=== PATIENT | male | born 1955 | race Caucasian/White ===

== ENCOUNTER 2018-03-09 14:56 | Outpatient (REF) | payer BC, SELFPAY ==
[2018-03-09 19:24] LABS: ALT 46 U/L (12-78); AST 35 U/L (15-37); Albumin 4.2 g/dL (3.4-5.0); Alkaline Phosphatase 65 U/L (46-116); Anion Gap 8.1 mmol/L (3-11); BUN 17 mg/dL (7-18); Bilirubin, Total 0.9 mg/dL (0.2-1.0); CO2 28.9 mmol/L (21.0-32.0); CREATININE 1.09 mg/dL (0.70-1.30); Calcium 9.7 mg/dL (8.5-10.1); Chloride 107 mmol/L (98-107); Cholesterol 211 mg/dL (50-200); Glucose 84 mg/dL (70-100); HDL Cholesterol 48 mg/dL (40-60); LDL CHOLESTEROL 133 mg/dL (<100); Potassium 4.4 mmol/L (3.5-5.1); Sodium 144 mmol/L (136-145); Total Protein 7.5 g/dL (6.4-8.2); Triglyceride 145 mg/dL (30-150)
== END 2018-03-09 15:16 ==
LOC: LBN 14:56
PROVIDERS: PCP Internal Medicine; Visit Provider Family Medicine
DX: Z13.220 Encounter for screening for lipoid disorders (principal); Z13.228 Encounter for screening for other metabolic disorders
CPT/HCPCS: 80053; 80061; 83721

== ENCOUNTER 2018-12-07 07:07 | Day surgery (SDC) | payer MEDICARE, BC, SELFPAY ==
--- NOTE | 2018-12-07 06:37 | W.COLOREPORT ---
Date of service: 12/07/18 Time of Service: 08:18 Colonoscopy Report Date of procedure: 12/07/18 Pre-op diagnosis general: Hx of colon polyps Post-op diagnosis procedure note: same Procedure: Colonoscopy with polypectomy by cold forceps Surgeon: Prudence Heard Anesthesia proc note operative: other (General/ ASA 2/Mayda Luke CRNA) Estimated blood loss (mL): 3 Pathology: other (Rectal Polyps x4) Complications: None Indications: Mr. Arce is a pleasant 63 year old male seen in the office for a colonoscopy. His last colonoscopy was in 2013 and he was noted to have an adenomatous polyp in the distal sigmoid colon. He is here for a follow up colonoscopy. Risks, benefits and complications have been reviewed. Complications include but are not limited to bleeding, pain, perforation, missed small lesion/polyp, sore throat, aspiration and adverse reaction to the medications. Questions were entertained and answered to their satisfaction and they wished to proceed. No guarantees were given or implied. Prep: Miralax/Dulcolax Procedure Start Time: :18 Procedure End Time: : Retraction Time: 15 minutes Findings: 4 small sessile polyps in the rectum Mild Diverticulosis Procedure Description: After informed consent was obtained the patient was taken to the procedure room and placed in a left decubitous position. Monitors were applied and a time out was done. The patients name, date of , procedure, allergies to medications and metal in their body was reviewed. The patient was then sedated. Once sedated and comfortable a rectal exam was done. External exam was normal. Internal exam revealed a normal sphincter tone and no palpable masses. The prostate felt normal size. There was a question of a small nodule. The scope was then introduced and retro-flexed. No internal hemorrhoids. masses were identified on retro-flexion. The scope was then advanced to the cecum with some difficulty. There was a very tight corner in the sigmoid colon that was difficult to get around. The TI and appendiceal orifice were identified. The prep was adequate. The scope was then slowly retracted over 15 minutes back into the rectum. Polyps were removed with cold forceps in the rectum. There was mild diverticulosis of the sigmoid colon. The scope was removed and the patient was woken up and taken back to Same day surgery in stable condition. The patient tolerated the procedure well and there were no immediate complications. Follow up: The patient should follow up in 5 years unless they develop changes in bowel habits or other new gastrointestinal complaints. He should follow up with PCP for a possible small nodule on the prostate.
--- NOTE | 2018-12-07 06:39 | W.PM.DSUDISC ---
Discharge Plan Disposition Patient Disposition: HOME Condition: Good Discharge Details Reason For Visit: Colonoscopy Attending Provider: Prudence Heard Primary Care Provider: Joe Arreola Home Meds and New Rx's Prescriptions: Continued tadalafil [Cialis] 10 mg tablet 10 mg PO DAILY PRN (Reason: sexual activity) Qty: 10 RF: 6 MULTIPLE VITAMINS DAILY 1 EACH tablet 1 ea PO DAILY RF: 0 Discontinued bisacodyl [Dulcolax (bisacodyl)] 5 mg tablet,delayed release (DR/EC) 5 mg PO ONCE Qty: 4 RF: 0 polyethylene glycol 3350 17 gram powder in packet 255 g PO DAILY Qty: 15 RF: 0 Discharge Instructions Instructions: Colonoscopy (DC), Diverticulosis (DC) Additional Instructions: Findings: 4 small rectal polyps Mild diverticulosis I felt a small nodule on your prostate which is probably nothing but I want you to have a check up with your PCP Follow up: 5 years Please call if you develop: fevers >101.5 Nausea or Vomiting Abdominal pain that is not transient DAY SURGERY UNIT POST ENDOSCOPY INSTRUCTIONS 1. Because there will be medication in your system for the next 24 hours, you may feel a little sleepy. Your coordination will be affected. Therefore: a. Do not drive or operate dangerous equipment for 24 hours. b. Do not drink alcohol beverages for 24 hours (not even beer). c. Plan to go home and rest for the day. 2. Generally there are no restrictions on your activity after a day or so has gone by, but you may feel a bit fatigued for a few days. 3 After you arrive home you may have a light meal and return to a normal diet as you can tolerate it without feeling sick to your stomach. 4. After surgery, you may feel pain or discomfort. This should be only transient, but if it persists please contact your doctor. 5. If there are any questions regarding the findings of your procedure, please feel free to contact your doctor. 6. If you are unable to contact your doctor with a problem, contact the hospital at [phone]. 7. Continue all your regular medications unless directed otherwise. I understand the above instructions and have no questions. Signature of Patient or Responsible Adult Escort Date/Time Name of Responsible Adult Escort Signature of Nurse Date/Time Referrals: Joe Arreola, [Primary Care Provider] - (? small nodule on prostate) Activity:: Activity as Tolerated Diet:: High Fiber Diet Discharge Orders Discharge Orders: Discharge Order (Routine); Ordered 12/07/18 Ordered By: Prudence Heard DS: Diagnosis Discharge Diagnosis (1) S/P colonoscopy: Status: Acute (2) Diverticulosis: Status: Acute
[2018-12-07 07:15] VITALS: BP 142/81; PULSE 63; RESP 18; TEMP 36.1; O2SAT 96
[2018-12-07] MEDS: Lactated Ringers 1,000 ML 80 ML IV (07:35)
[2018-12-07 08:35] VITALS: BP 126/84; PULSE 49; RESP 17; TEMP 36.2; O2SAT 96
--- NOTE | 2018-12-07 08:38 | BOWEL_PTH ---
PATIENT: Edil Arce LOC: [facility] U#:[id number] AGE/SX: 63/M ROOM: RE12/07/[address]: Prudence Heard MD : [id number] BED: DIS: 12/07/2018 SPEC #: [id number] RECD: 12/07/18 12:45 STATUS: GRETCHEN REQ #: [id number] MICHAEL: 12/07/18 08:[address]: Prudence Heard DEPT: Surgical Specimen RECD BY: Toña Jeter ENTERED: 12/07/18 12:46 SP TYPE: Bowel OTHR DR: Joe Arreola DO Tissues: 1 - BIOPSY BOWEL Procedures: GROSS AND MICRO LEVEL 4 Comments: [id number]
== END 2018-12-07 09:51 | disposition home or self-care (01) ==
LOC: SUR 07:08
PROVIDERS: PCP Family Medicine; Visit Provider Surgery
PROC: 0DJD8ZZ Inspection of Lower Intestinal Tract, Via Natural or Artificial Opening Endoscopic (ICD-10-PCS; CPT 45378; principal; 2018-12-07 08:30)
DX: Z12.11 Encounter for screening for malignant neoplasm of colon (principal); K62.1 Rectal polyp; K57.30 Diverticulosis of large intestine without perforation or abscess without bleeding; Z86.010 Personal history of colon polyps
CPT/HCPCS: 45380; 88305

== ENCOUNTER 2019-01-19 19:09 | Outpatient (REF) | payer MEDICARE, BC, SELFPAY ==
[2019-01-21 10:12] LABS: PSA, Screening 3.6 ng/mL (0.0-4.5)
== END 2019-01-19 19:29 ==
LOC: LBN 19:09
PROVIDERS: PCP Family Medicine; Visit Provider Family Medicine
DX: N40.2 Nodular prostate without lower urinary tract symptoms (principal); Z12.5 Encounter for screening for malignant neoplasm of prostate
CPT/HCPCS: 84153

== ENCOUNTER → 2019-02-16 10:16 | Outpatient (BNVA) | payer MEDICARE, BC, SELFPAY | PROVIDERS: PCP Family Medicine; Referring Provider Family Medicine; Visit Provider Nurse Practitioner Gerontology | DX: N42.89 Other specified disorders of prostate (principal) | CPT/HCPCS: 99203; 99214 ==

== ENCOUNTER 2019-12-18 10:37 | Emergency (ER) | payer MEDICARE, BC, SELFPAY ==
[2019-12-18 10:46] VITALS: BP 131/85; PULSE 65; RESP 15; TEMP 36.6; O2SAT 97
--- NOTE | 2019-12-18 10:58 | ED.GENADUL_ITS ---
Discharge Plan Disposition Patient Disposition: HOME Condition: Good Discharge Details Clinical Impression: Chalazion Primary Care Provider: Joe Arreola ED Provider: Gillian Anand Home Meds and New Rx's Prescriptions: Continued tadalafil [Cialis] 10 mg tablet 10 mg PO DAILY PRN (Reason: sexual activity) Qty: 10 RF: 6 MULTIPLE VITAMINS DAILY 1 EACH tablet 1 ea PO DAILY RF: 0 Discharge Instructions Instructions: Anurag (ED) Additional Instructions: Please apply warm compress to the eye 4-5 times daily x10 minutes. While doing this, please gently massage the upper eyelid. If you develop fever/chills, spreading of the swelling, increased pain, visual change of any/any symptoms to seek care urgently once again. Otherwise, please follow-up with handbag frames inspector this week for reevaluation. Referrals: Joe Arreola DO [Primary Care Provider] - Discharge Data Discharge Date/Time-TO BE ENTERED AT DEPARTURE: 12/18/19 11:20 Medical Decision Making Patient is a pleasant 34-year-old gentleman presenting today with chief complaint of swelling to the right upper eyelid. Ports that began to this department 2 weeks ago. No vision change. No foreign body sensation. Denies any pain on this area. States that he has maybe gone down slightly but otherwise no change in the size or sensation. No fevers or chills. Until last night he had not been doing anything for this. Applied warm compress x1 last night. On exam, patient has a focal area of swelling and erythema consistent with chalazion. Not see any evidence to suggest periorbital cellulitis. No pain with palpation. Patient is nontoxic-appearing. She wears a contact to the contralateral side but not on the right side. Advised warm compresses 4-5 times daily as well as tension/to the eyelid. He does have a local handbag frames inspector, who resides with follow-up with them later in the week after attempting warm compresses. All of his questions and concerns were addressed, he is in agreement with this plan. HPI General Mode of arrival: ambulatory . Date/Time Provider Initiated Documentation: 12/18/19 10:58 . Limitations to Documentation: no limitations . Information obtained by: patient and RN notes reviewed . History of Present Illness 64 year old M presents to the emergency department with the chief complaint of raised, erythematous lesion to right upper eyelid, described as mild (denies any pain), Quality is described as other (irritating), Patient reports no radiation. Patient started experiencing this week(s) (2) and it has been constant (reports mild improvement). No relieving factors improve symptom(s), No exacerbating factors reported . Patient notes no other symptoms.. Patient did receive the following treatments prior to arrival, none Related Data Home Medications Medication Instructions Recorded Confirmed Multiple Vitamins Daily 1 ea PO DAILY 12/02/13 12/18/19 tadalafil 10 mg tablet 10 mg PO DAILY PRN #10 tab 03/09/18 12/18/19 Previous Rx's Medication Instructions Recorded tadalafil 10 mg tablet 10 mg PO DAILY PRN #10 tab 03/09/18 Allergies Allergy/AdvReac Type Severity Reaction Status Date / Time Penicillins Allergy Unknown unknown Verified 12/18/19 10:52 General Stated Complaint: EyeProblem KATHARINA: 4 Review of Systems Constitutional Constitutional: Reports as per HPI, Denies chills, Denies fatigue, Denies fever(s) and Denies headache(s) Eyes Eyes: Reports as per HPI ENT Ears, Nose, Mouth, and Throat: Denies headache(s) Cardiovascular Cardiovascular: Reports as per HPI, Denies chest pain and Denies lightheadedness Respiratory Respiratory: Denies cough Integumentary/Breasts Skin/Breast: Reports as per HPI, Denies rash, Denies skin pain and Denies skin swelling Neurologic Neurologic: Denies headache(s) and Denies radicular pain Endocrine Endocrine: Denies fatigue [facility] Medical History (Updated 12/18/19 @ 11:16 by CHRISTOPHER Givens) Actinic keratoses (08/22/14) L fawn, h/o Labreque, H/o Paresh 02/2012 Diverticulosis Hyperlipidemia (01/15/13) LDL 132; RISK 10% REC LIFESTYLE 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) Other sleep disturbances (12/06/11) no longer using meds 06/2012 Plantar fasciitis of right foot (08/04/13) Rosacea (12/06/11) dr chavez Sciatica (08/31/02) left; recurrent 2009; recurrent 05/2012 (shoveling/raking) susu L, relieved by inversion bench Tubular adenoma of colon (11/14/14) distal sigmoid tub adenoma, rpt 5 yr Surgical History Colonoscopy - IV Sedation (03/09/04) 2014- tubular adenoma Excision, Lesion (03/09/13) R arm excision non-healing ulcer-Squamous cell carcinoma Dr Man History of shoulder surgery L rotator cuff punch biopsy (01/19/15) L shoulder S/P colonoscopy (~12/07/18) Family History Mother Emphysema lung Father Personal history of malignant neoplasm lung Sister Personal history of malignant neoplasm brain cancer Sister No problems noted. Other Tubular adenoma of colon Social History Smoking/Tobacco Use Status: Never Smoking risk assessment performed?: Yes Alcohol Intake: current Alcohol Intake frequency: a few times a week Alcohol type: beer and wine Drug use: Never Substance use type: does not use Household members: spouse Housing: house Number of Children: 1 current occupation: [employer] Current gender identity: male What type of physical activity do you participate in: regular exercise Frequency: 3-4 times per week Seatbelt use: always Drive intox or ride w/intox haulpak driver: No Working smoke detector in home: Yes Fire extinguisher in home: Yes Carbon monox detector in home: Yes Do you feel safe at home: Yes Do you feel safe in your relationship?: Yes Exam Const General: cooperative, healthy appearing, comfortable, no acute distress, well developed and well groomed Nutritional Appearance: average body habitus and well nourished Orientation: alert, awake and oriented x3 HENMT Head: normal to inspection, normocephalic and atraumatic Ears: hearing grossly normal bilaterally and external ears normal General nose exam: external nose normal and nares normal Face and sinus: normal facial exam and face symmetric Mouth: oral mucosae normal, lip normal and moist mucous membranes Eyes Visual Chen: normal visual chen by confrontation Alignment and Position: alignment normal and position normal Periorbital: periorbital findings normal Eyelids: eyelid abnormality right upper eyelid inflamed cyst external lid; no crusting or scaling of lid margins, with no swelling and nontender Conjunctivae: conjunctivae normal Sclera: sclerae normal Cornea: corneas normal Pupils: PERRL and normal by confrontation EOM: EOM intact bilaterally Resp Effort & Inspection: normal respiratory effort, able to speak in complete sentences and no respiratory distress Skin General skin exam: erythema Neuro General: patient alert, patient awake and patient oriented x3 Cranial Nerves: CN's II-XI intact bilaterally Cognition: normal cognition Speech: speech normal Gait: normal gait Psych Appearance: grossly normal and well kempt Mental Status: mental status grossly normal Speech and Movement: speech and movement normal Course Vital Signs Vital signs: Vital Signs Temperature 36.6 C 12/18/19 10:46 Pulse 65 12/18/19 10:46 Respiratory Rate 15 12/18/19 10:46 Blood Pressure 131/85 12/18/19 10:46 Pulse Oximetry 97 12/18/19 10:46 Temperature 36.6 C 12/18/19 10:46 Temperature Source Temporal Artery Scan 12/18/19 10:46 Pulse 65 12/18/19 10:46 Respiratory Rate 15 12/18/19 10:46 Blood Pressure 131/85 12/18/19 10:46 Blood Pressure Position Sitting 12/18/19 10:46 Pulse Oximetry 97 12/18/19 10:46 Oxygen Delivery Method Room Air 12/18/19 10:46 Oxygen Flow Rate 0 12/18/19 10:46 Pain Level 0 12/18/19 10:46
== END 2019-12-18 11:20 | disposition home or self-care (01) ==
PROVIDERS: Emergency Provider Physician Assistant; PCP Family Medicine
DX: H00.11 Chalazion right upper eyelid (principal)
CPT/HCPCS: 99281

== ENCOUNTER 2020-01-14 04:43 | Outpatient (CLI) | payer MEDICARE, BC, SELFPAY ==
[2020-01-16 10:23] LABS: Patient Race White; SARS-CoV-2 RNA Undetected (Undetected); SARS-CoV-2 Specimen Source Nasal
== END 2020-01-14 05:03 ==
PROVIDERS: PCP Family Medicine; Visit Provider Family Medicine
DX: Z11.59 Encounter for screening for other viral diseases (principal); Z20.828 Contact with and (suspected) exposure to other viral communicable diseases
CPT/HCPCS: U0003

== ENCOUNTER → 2020-01-17 14:54 | Outpatient (BNVA) | payer MEDICARE, BC, SELFPAY | PROVIDERS: PCP Family Medicine; Referring Provider Family Medicine; Visit Provider Nurse Practitioner Gerontology | DX: N42.89 Other specified disorders of prostate (principal) | CPT/HCPCS: 99213 ==

== ENCOUNTER 2021-04-10 14:06 | Outpatient (CLI) | payer MEDICARE, BC, SELFPAY ==
--- NOTE | 2021-04-10 11:01 | DI.RAD_ITS ---
Exam(s) XR HIP LT COMPLETE AP PELVIS EXAM: XR HIP LT COMPLETE AP PELVIS CLINICAL HISTORY: 6 months of L hip pain, suspect arthritis, pain lt hip, M25.552, G89.29 TECHNIQUE: COMPARISON: No exams were available for comparison FINDINGS: Two views were obtained. There are mild degenerative changes of both hips. Cartilaginous joint spac es are fairly well preserved and there are mild marginal osteophytes of the acetabula bilaterally. F emoral heads are well maintained. There are mild degenerative changes of both SI joints and there ar e degenerative changes noted in the lower lumbar spine. IMPRESSION: Mild DJD hips, lower lumbar spine, and SI joints. RADIATION DOSE DELIVERED: Total DLP
== END 2021-04-10 14:26 ==
PROVIDERS: PCP Family Medicine; Visit Provider Family Medicine
DX: M25.552 Pain in left hip (principal); G89.29 Other chronic pain; M16.12 Unilateral primary osteoarthritis, left hip; M53.3 Sacrococcygeal disorders, not elsewhere classified
CPT/HCPCS: 73502

== ENCOUNTER → 2021-05-03 10:42 | Outpatient (BNVA) | payer MEDICARE, BC, SELFPAY | PROVIDERS: PCP Family Medicine; Referring Provider Family Medicine; Visit Provider Student in an Organized Health Care Education/Training Program | DX: M25.852 Other specified joint disorders, left hip (principal) | CPT/HCPCS: 99214 ==

== ENCOUNTER → 2021-05-21 01:03 | Outpatient (CLI) | payer MEDICARE, BC, SELFPAY ==
--- NOTE | 2021-05-21 06:30 | DI.MRI_ITS ---
Exam(s) MR LOWER JOINT LT WO EXAM: MR LOWER JOINT LT WO CLINICAL HISTORY: PAIN,?AVN L HIP,FEMORAL ACETABULAR IMPINGEMENT,M25.857 TECHNIQUE: Multiplanar multisequence MRI of the knee was performed. COMPARISON: No exams were available for comparison FINDINGS: MARROW: There is no evidence of stress fracture nor avascular necrosis. No intraosseous edema in the hip and pelvic bones and no incidental osseous lesions. No evidence of asymmetric joint effusion. There is no bony excrescence seen off the anterior femoral neck to suggest CAM-type RISHI and there are no femoral head osteophytes evident. ARTICULATION: There are mild degenerative cartilage changes in the left hip joint. There are no prom inent chondral defects nor degenerative subarticular cysts evident in the acetabulum and femoral head . No asymmetric hypertrophy of the ligamentum teres no abnormal signal at the level of the fovea sae tralis. LABRUM: There is fluid invagination consistent with tear in the anterosuperior labrum. No large para labral cyst Incidentally noted on the coronal STIR sequences suggestion of possible tear also in the opposite-rig ht hip labrum. SOFT TISSUES: No evidence of tendinitis nor trochanteric bursitis. Also no evidence of iliopsoas bur sitis. No evidence of hamstring tendon tear at the level of the ischial tuberosity OTHER: Enlarged prostate gland. IMPRESSION: 1. No evidence of stress fracture, avascular necrosis, nor left hip joint effusion 2. There is a tear in the anterosuperior labrum. This is associated with a tiny adjacent cyst which appears to be in the acetabulum. Probably small developing degenerative subarticular cyst at this le lalit. 3. Mild osteoarthritic degenerative changes in the hips. No osteophytes evident. 4. No prominent femoral neck bony excrescence evident. DATA REPOSITORY:
== END ==
PROVIDERS: PCP Family Medicine; Visit Provider Student in an Organized Health Care Education/Training Program
DX: M25.852 Other specified joint disorders, left hip (principal); M25.552 Pain in left hip; M16.12 Unilateral primary osteoarthritis, left hip; S73.192A Other sprain of left hip, initial encounter; X58.XXXA Exposure to other specified factors, initial encounter
CPT/HCPCS: 73721

== ENCOUNTER 2021-05-29 12:54 | Outpatient (CLI) | payer MEDICARE, BC, SELFPAY ==
--- NOTE | 2021-05-29 12:45 | DI.RAD_ITS ---
Exam(s) XR HIP LT COMPLETE AP PELVIS EXAM: XR HIP LT COMPLETE AP PELVIS CLINICAL HISTORY: preop. TECHNIQUE: 2D digital imaging was performed of the left hip. Two views were obtained. AP pelvis an d lateral left hip views were obtained. COMPARISON: CR XR HIP LT COMPLETE AP PELVIS from 04/10/2021 FINDINGS: BONES: No acute fracture is present. No bony destructive lesion is seen. JOINTS: No dislocation present. Stable mild degenerative changes are seen in the hips bilaterally. SOFT TISSUE: Normal. IMPRESSION: Mild degenerative changes seen in the left hip. DATA REPOSITORY: RADIATION DOSE DELIVERED:
== END 2021-05-29 12:55 | disposition home or self-care (01) ==
LOC: DIORS 12:54
PROVIDERS: PCP Family Medicine; Referring Provider Family Medicine; Visit Provider Physician Assistant Surgical
DX: G89.29 Other chronic pain (principal); M25.552 Pain in left hip; Z01.818 Encounter for other preprocedural examination; M25.852 Other specified joint disorders, left hip
CPT/HCPCS: 73502

== ENCOUNTER 2021-06-04 02:33 | Outpatient (CLI) | payer MEDICARE, BC, SELFPAY ==
[2021-06-04 09:29] LABS: MCH 31.9 pg (27.0-33.0); MCHC 32.9 % (32.0-36.0); MPV 10.9 fL (8.0-11.0); Platelet Count 191 10^3/uL (130-400); RBC 5.39 10^6/uL (4.36-5.78); RDW 11.9 % (11.8-14.1); RDW-SD 42.8 fL; WBC 6.47 10^3/uL (4.4-10.8)
[2021-06-04 09:32] LABS: HCT 52.3 % (40.0-50.0); HGB 17.2 g/dL (13.5-17.5)
[2021-06-04 10:21] LABS: Anion Gap 6.9 mmol/L (3-11); BUN 15 mg/dL (7-18); CO2 30.1 mmol/L (21.0-32.0); CREATININE 1.2 mg/dL (0.70-1.30); Chloride 106 mmol/L (98-107); Glucose 95 mg/dL (74-106); Potassium 4.2 mmol/L (3.5-5.1); Sodium 143 mmol/L (136-145)
[2021-06-04 12:08] LABS: Source Nasal/Nares
[2021-06-04 15:36] LABS: COVID-19 PCR Negative (Negative)
== END 2021-06-04 02:34 | disposition home or self-care (01) ==
PROVIDERS: PCP Family Medicine; Visit Provider Student in an Organized Health Care Education/Training Program
DX: M25.552 Pain in left hip (principal); M16.12 Unilateral primary osteoarthritis, left hip; Z20.822 Contact with and (suspected) exposure to COVID-19; Z01.818 Encounter for other preprocedural examination; Z01.812 Encounter for preprocedural laboratory examination
CPT/HCPCS: 36415; 80048; 85027; 87635; U0005

== ENCOUNTER 2021-06-04 02:49 | Outpatient (CLI) | payer MEDICARE, BC, SELFPAY | END 2021-06-04 02:50 | disposition home or self-care (01) | LOC: LBO 02:49 | PROVIDERS: PCP Family Medicine; Visit Provider Student in an Organized Health Care Education/Training Program ==

== ENCOUNTER 2021-06-06 07:19 | Day surgery (SDC) | payer MEDICARE, BC, SELFPAY ==
[2021-06-06] VITALS (10 sets, daily range): BP systolic 72–139; BP diastolic 47–91; PULSE 47–73; RESP 14–18; TEMP 36.1–36.6; O2SAT 93–99; BMI 27.1
--- NOTE | 2021-06-06 07:24 | W.PM.DSUDISC ---
Discharge Plan Disposition Patient Disposition: HOME Condition: Good Discharge Details Reason For Visit: Left MARIA ALEJANDRA Attending Provider: Willi Jefferson Primary Care Provider: Joe Arreola Home Meds and New Rx's Prescriptions: New celecoxib [Celebrex] 200 mg capsule 200 mg PO BID Qty: 60 0RF aspirin 81 mg tablet,delayed release (DR/EC) 81 mg PO BID Qty: 60 0RF pantoprazole [Protonix] 40 mg tablet,delayed release (DR/EC) 40 mg PO DAILY Qty: 30 0RF acetaminophen 500 mg capsule 1,000 mg PO Q8H PRN PRNQty: 90 0RF oxycodone 5 mg tablet 5 mg PO Q4H PRNQty: 18 0RF Continued lisinopril 10 mg tablet 10 mg PO DAILY Qty: 90 3RF atorvastatin 40 mg tablet 40 mg PO QHS Qty: 90 3RF tadalafil [Cialis] 10 mg tablet 10 mg PO DAILY PRN (Reason: sexual activity) Qty: 10 6RF Rx Instructions: administer approximately 30min before sexual activity; do not use more than 1 dose per 24hrs MULTIPLE VITAMINS DAILY 1 EACH tablet 1 ea PO DAILY 0RF Discharge Instructions Additional Instructions: Total Hip Discharge Instructions Activity: The most important activity is to walk. You should try to take short walks a few times a day. You have no restrictions on movement or positioning, but do not try to force what you do. You will find some stiffness and weakness with hip flexion (lifting your knee). Do not try to strengthen this too early, continue to practice walking and stairs and this will come. - Outpatient physical therapy can be helpful to help return you to a normal gait and improve your flexibility and strength. This can start around 2 weeks. For some patients, it?s not necessary. Usually this is determined at the time of discharge or at the first post-operative visit. - You should wear the TOMY hose on both legs for 2 weeks. Dressing: Keep the surgical dressing in place for at least one week. After the first week it may be removed and replace with light gauze and tape or nothing. It may get wet after 3 days but avoid soaking the dressing. If it gets wet, just lightly pat dry. It is important to always keep some gauze between skin folds, especially when you are sitting. Spend some time with the wound exposed when you are lying flat as the incision does wrinkle onto itself. Medications: - You should take Tylenol and an anti-inflammatory Celebrex as your primary pain control medications. If the Celebrex is too expensive or not covered, please call the office for another alternative (Advil/Ibuprofen or Naproxen/Aleve). - You have been prescribed a stronger pain medication Oxycodone for breakthrough pain, take as needed as prescribed. - You have also been prescribed a stomach acid reduction agent Pantoprozole to help reduce stomach acid and reflux. - You will be taking Aspirin 81mg twice a day for DVT prevention unless instructed otherwise. - If you have constipation you should take Colace or Miralax (both [id number]). It takes most people 3-4 days to have a bowel movement. Follow-up: 2 weeks If you have any acute concerns or questions, please do not hesitate to contact the office at [phone]. You may contact Dr. Jefferson with any questions after hours through the hospital at [phone] or on his cell phone at [phone]. Equipment/Supplies: Walker Activity:: Activity as Tolerated Remove Dressings/Wound Care:: Do Not Remove Shower/Bathe:: 72 hours Diet:: As Tolerated Discharge Orders Discharge Orders: Discharge Order (Routine); Ordered 06/06/21 Ordered By: Mikala Blanc
[2021-06-06] MEDS: Acetaminophen 500 MG TAB 1000 MG PO (07:58)
[2021-06-06] MEDS: Celecoxib 200 MG CAP 400 MG PO (07:58)
[2021-06-06] MEDS: Lactated Ringers 1,000 ML 80 ML IV (08:15)
--- NOTE | 2021-06-06 08:17 | ANES.PREOP_ITS ---
General Info Date of Service Date Performed: 06/06/21 Height: 5 ft 8 in Weight: 81 kg Body Mass Index (BMI): 27.1 Surgical Procedure: Operation Date: 06/06/21 09:50 Proposed Procedure Side Surgeon p Hip Total Hip Anterior Left Willi Jefferson MD Meds Allergies and Home Medications Allergies Allergy/AdvReac Type Severity Reaction Status Date / Time Penicillins Allergy Unknown unknown Verified 06/06/21 07:41 Home Medication Medication Instructions Recorded Multiple Vitamins Daily 1 ea PO DAILY 12/02/13 tadalafil 10 mg tablet (Cialis) 10 mg PO DAILY PRN #10 tab 03/09/18 atorvastatin 40 mg tablet 40 mg PO QHS #90 tab 05/15/21 lisinopril 10 mg tablet 10 mg PO DAILY #90 tab 05/15/21 acetaminophen 500 mg capsule 1,000 mg PO Q8H PRN PRN #90 cap 06/06/21 aspirin 81 mg tablet,delayed 81 mg PO BID #60 tab 06/06/21 release celecoxib 200 mg capsule (Celebrex) 200 mg PO BID #60 cap 06/06/21 oxycodone 5 mg tablet 5 mg PO Q4H PRN #18 tab 06/06/21 pantoprazole 40 mg tablet,delayed 40 mg PO DAILY #30 tab 06/06/21 release (Protonix) Current Visit Medications: Current Medications Generic Name Dose Route Start Last Admin Trade Name Freq PRN Reason Stop Dose Admin Acetaminophen 1,000 mg 06/06/21 06:00 06/06/21 07:58 Acetaminophen 500 Mg Tab PO 1,000 mg PREOP MARTIN Administration Acetaminophen 1,000 mg 06/06/21 14:00 Acetaminophen 500 Mg Tab PO TID MARTIN Aspirin 81 mg 06/06/21 20:00 Aspirin E.C. 81 Mg Tabec PO BID MARTIN Celecoxib 400 mg 06/06/21 06:00 06/06/21 07:58 Celecoxib 200 Mg Cap PO 400 mg PREOP MARTIN Administration Celecoxib 200 mg 06/06/21 20:00 Celecoxib 200 Mg Cap PO BID MARTIN Bupivacaine HCl 25 ml/ 0 ml 06/05/21 11:30 Ketorolac Tromethamine 15 mg/ IJ 06/10/21 11:29 Sodium Chloride 24.5 ml DIRECTED MARTIN Docusate Sodium 100 mg 06/06/21 07:06 Docusate Sodium 100 Mg Cap PO BID PRN PRN Constipation Hydromorphone HCl 0.5 mg 06/06/21 07:06 Hydromorphone 2 Mg/Ml Vial IVP Q2H PRN PRN Tranexamic Acid 1,000 mg/ 60 mls @ 360 mls/hr 06/06/21 06:00 Sodium Chloride IV PREOP MARTIN Ringer's Solution 1,000 mls @ 80 mls/hr 06/06/21 06:00 IV 07/05/21 23:59 INFUSION MARTIN Cefazolin Sodium/Dextrose 2 gm in 50 mls @ 100 mls/hr 06/06/21 06:00 Ancef Duplex IVPB 07/05/21 23:59 PREOP MARTIN Cefazolin Sodium/Dextrose 1 gm in 50 mls @ 100 mls/hr 06/06/21 16:00 Ancef Duplex IVPB 06/07/21 08:29 Q8H MARTIN IV Miscellaneous Supplies 1 each 06/06/21 06:00 Iv Access IV 07/05/21 23:59 DIRECTED MARTIN Ondansetron HCl 4 mg 06/06/21 07:06 Ondansetron 4 Mg/2 Ml Vial IVP Q6H PRN PRN Nausea Oxycodone HCl 0 mg 06/06/21 07:06 Oxycodone 5 Mg Tab PO Q3H PRN PRN Pain Pantoprazole Sodium 40 mg 06/07/21 07:30 Pantoprazole 40 Mg Tabcr PO DAILY@0730 MARTIN Sodium Chloride 0 ml 06/06/21 06:00 Normal Saline Flush 10 Ml Syr IV 07/05/21 23:59 PRN PRN Sodium Chloride 0 ml 06/06/21 06:00 Normal Saline 10 Ml Vial IJ 07/05/21 23:59 DIRECTED PRN Sterile Water 0 ml 06/06/21 06:00 Water,Injection,Sterile 10 Ml Vial IJ 07/05/21 23:59 DIRECTED PRN PFSH Active Problems Active Problems: Problem Status Onset Code Heart murmur R01.1 Essential hypertension I10 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 Chronic left hip pain M25.552, G89.29 Low back pain M54.50 Sciatic leg pain M54.30 Diverticulosis K57.90 S/P colonoscopy ~12/07/18 Z98.890 Actinic keratoses 08/22/14 L57.0 Hyperlipidemia 01/15/13 E78.5 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 Plantar fasciitis of right foot 08/04/13 M72.2 Rosacea 12/06/11 L71.9 Other sleep disturbances 12/06/11 G47.8 Sciatica 08/31/02 M54.30 Medical History Medical History Tubular adenoma of colon (12/31/13) distal sigmoid tub adenoma, rpt 5 yr Surgical History Surgical History Colonoscopy - IV Sedation (03/09/04) 2014- tubular adenoma Excision, Lesion (03/09/13) R arm excision non-healing ulcer-Squamous cell carcinoma Dr Man History of shoulder surgery L rotator cuff punch biopsy (01/19/15) L shoulder Tobacco Smoking/Tobacco Use Status: Never Alcohol Alcohol Intake: current Alcohol intake frequency: a few times a week Alcohol type: beer and wine Substance Use Substance use: Never Substance use type: does not use Vital Signs and Lab Results Vital Signs Most Recent Vital Signs in EMR: Most Recent Vital Signs Temp Pulse Resp BP Pulse Ox 36.6 C 73 18 139/85 95 06/06/21 07:51 06/06/21 07:51 06/06/21 07:51 06/06/21 07:51 06/06/21 07:51 Lab Results Blood Type / Crossmatch: No Data to Display Complete Blood Count: White Blood Count 6.47 10^3/uL (4.4-10.8) 06/04/21 09:15 06/04/21 Red Blood Count 5.39 10^6/uL (4.36-5.78) 06/04/21 09:15 06/04/21 Hemoglobin 17.2 g/dL (13.5-17.5) 06/04/21 09:15 06/04/21 Hematocrit 52.3 % (40.0-50.0) H 06/04/21 09:15 06/04/21 Platelet Count 191 10^3/uL (130-400) 06/04/21 09:15 06/04/21 Complete Metabolic Panel: 2 Sodium Level 143 mmol/L (136-145) 06/04/21 09:15 06/04/21 Potassium Level 4.2 mmol/L (3.5-5.1) 06/04/21 09:15 06/04/21 Chloride Level 106 mmol/L (98-107) 06/04/21 09:15 06/04/21 Carbon Dioxide Level 30.1 mmol/L (21.0-32.0) 06/04/21 09:15 06/04/21 Blood Urea Nitrogen 15 mg/dL (7-18) 06/04/21 09:15 06/04/21 Creatinine 1.2 mg/dL (0.70-1.30) 06/04/21 09:15 06/04/21 Estimated GFR/1.73 m2 >= 60.00 (mL/min/1.73m2) 06/04/21 09:15 06/04/21 Calcium Level 10.0 mg/dL (8.5-10.1) 06/04/21 09:15 06/04/21 Glucose Level 95 mg/dL (74-106) 06/04/21 09:15 06/04/21 Liver Function Panel: No Data to Display Coagulation Panel: No Data to Display Cardiac Panel: No Data to Display Arterial Blood Gas: No Data to Display Venous Blood Gas: No Data to Display Pancreas Panel: No Data to Display Thyroid Panel: No Data to Display Infectious Disease: Coronavirus (COVID-19)(PCR) Negative (Negative) 06/04/21 09:25 06/04/21 Coronavirus 2019 Source Nasal/Nares 06/04/21 09:25 06/04/21 Blood Cultures: No Data to Display Toxicology Panel: No Data to Display Anesthesia Assessment and Plan Anesthesia History Personal History: No History of Anesthesia Complications Family History: No Family History of Anesthesia Complications Exercise Tolerance Exercise Tolerance: Metabolic Equivalents>4 Pertinent Negatives Pertinent Negatives: No Symptoms of GERD, No Major Cardiovascular Symptoms or Complaints and No Major Pulmonary Symptoms or Complaints Cardiac & Pulmonary Exam Cardiac Exam: Normal S1/S2 Heart Sounds Pulmonary Exam: Clear Bilateral Breath Sounds Implantable Cardiac Device Does patient have a Pacemaker or an ICD?: No Airway Exam Known Difficult Airway: No Mallampati Class: 1 Mouth Opening: Normal (> 3cm) Thyromental Distance: Greater than 3 cm Neck Range of Motion: Full ROM Neck Circumference: Normal Teeth Condition: Normal Dentition ASA Classification ASA Score: ASA 2 Emergency Case?: No NPO Status NPO Status: NPO Clears >2 hours, Solids >8 hours Anesthesia Plan Resuscitation Status: Full Code Anesthesia Technique: Spinal Anesthesia Airway Planned: Natural Airway Monitors Used: Standard Monitors
[2021-06-06] MEDS: ceFAZolin 2 GM/50 ML BAG IVPB (09:07)
--- NOTE | 2021-06-06 10:32 | DI.RAD_ITS ---
Exam(s) XR HIP LT IN OR EXAM: XR HIP LT IN OR CLINICAL HISTORY: right total hip TECHNIQUE: 2D and realtime digital imaging was performed. COMPARISON: No exams were available for comparison FINDINGS: C-arm fluoroscopy was utilized by Dr. Jefferson during placement of left hip prosthesis. Hard copy sh ows femoral and acetabular components in good position. IMPRESSION: RADIATION DOSE DELIVERED: sheyla Mendes 4.53 mGy
--- NOTE | 2021-06-06 11:21 | W.ANESPOSTOP ---
Postoperative Evaluation Date, Time and Location Date Performed: 06/06/21 Time Performed: 11:21 Patient Location: PACU Vital Signs Most Recent Imported Vital Signs: Most Recent Vital Signs Temp Pulse Resp BP Pulse Ox 36.1 C L 47 L 16 84/56 L 96 06/06/21 11:10 06/06/21 11:10 06/06/21 11:10 06/06/21 11:10 06/06/21 11:10 Pain Score Most Recent Pain Score: Most Recent Pain Score Pain Level 0 06/06/21 07:51 Assessment Mental Status: Arousable with meaningful communication Airway and Respiratory Function: Patent airway with normal (patient baseline) respiratory exam Cardiovascular Function: Hemodynamically Stable Hydration Status: Adequately Hydrated Nausea & Vomiting: No Nausea or Vomiting Pain: Pain is tolerable per patient Peripheral Nerve Block: Patient did not receive a nerve block
--- NOTE | 2021-06-06 13:12 | IN_ITS ---
Date of service: 06/06/21 Time of Service: 13:12 PT Notes Visit Reasons: Left [facility] Physical Therapy Day Surgery Initial Evaluation Date: 06/07/2021 Referring Doctor: CHRISTOPHER Acosta PT Orders: PT CONSULT: S/P ortho surgery Precautions: WBAT on L LE with AD. Patient Profile/Admitting Diagnosis: Edil is a 65-year-old male patient with L femoral acetabular impingement and status post left anterior total hip arthroplasty on postoperative day 0. PMHX: Medical History? Tubular adenoma of colon (12/31/13) distal sigmoid tub adenoma, rpt 5 yr Surgical History? Colonoscopy - IV Sedation (03/09/04) 2014- tubular adenomaExcision, Lesion (03/09/13) R arm excision non-healing ulcer-Squamous cell carcinoma Dr Man History of shoulder surgery L rotator cuffpunch biopsy (01/19/15) L shoulder Social History/Home Situation: Lives with in a private home with 2 steps to enter without rails, he does however is able to hold onto door frame for support. He has a flight of steps to the bedroom but states that he can stay on the main floor of the house while recovering. 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 Has had 2 mechanical falls in the past 12 months Equipment Owned/DME: None Subjective: Agreeable to PT consult. Amazed at how well he is moving without pain. Objective: General Observation: Supine in bed. Mepilex Ag over surgical incision. TEDS to B legs. Mental Status: Alert and oriented x 4 Pain: 1/10 in the L hip ROM: Right Lower Extremity: Hip flexion WFL. Hip abduction WFL. Knee flexion WFL. Ankle dorsiflexion WFL. Ankle plantarflexion WFL. Left Lower Extremity: Hip flexion lacks the last 25% of active ROM. Hip abduction WFL. Knee flexion WFL. Ankle dorsiflexion WFL. Ankle plantarflexion WFL. Strength: Right Lower Extremity: Hip flexors 5/5. Hip abductors 5/5. Knee flexors 5/5. Knee extensors 5/5. Ankle dorsiflexors 5/5. Ankle plantarflexors 5/5. Left Lower Extremity: Hip flexors 3-/5. Hip abductors 4-/5. Knee flexors 4/5. Knee extensors 4-/5. Ankle dorsiflexors 5/5. Ankle plantarflexors 5/5. Sensation: Intact as to pain and light pressure in B lower extremities Bed Mobility/Transfers: Supine to sit standby assist Sit to stand contact-guard assist Stand to sit standby assist Bed to chair standby assist THERA EX: Ankle DF/PF x5, LAQs x 5, seated hip flexion x 5, quads sets x 5, gluts sets x 5. Gait: Tolerated 150 feet of level surface ambulation using the FWW with step-through gait pattern with stand by assist using FWW. No increase in pain report. No loss of balance. NO shortness of breath. Balance: Static Sitting: Normal Dynamic Sitting: Normal Static Standing: Fair Dynamic Standing: Fair Special Tests: Mobility Limitations Standardized Measure [facility] [place]-PAC 6 clicks Basic Mobility Inpatient Short Form: Raw Score: 2923 CMS Score: 11% deficit Informed Consent/Education: Patient instructed in purpose of PT consult. Education and training on initial set of exercises that can be done at home have been completed with patient with reference to [employer] that is downloadable to his smart phone/computer. ASSESSMENT: Patient requires the use of FWW for all mobility ADL performance to reduce fall risk and maximize independence at home. He will have the support of his as he recovers at home. Patient presents with clinical signs and symptoms consistent with current/admitting diagnoses that have resulted to mobility limitations, gait instability, generalized weakness, and impairment of motor control as demonstrated by the following impairment level findings: 1. Decreased strength to left hip major muscle groups 2. Impaired standing balance 3. Limitation of joint range of motion in left hip flexion Impairments are contributing to the following functional limitations: 1. Inability to safely ambulate without assistive device 2. Increase completion time for mobility ADL performance 3. Increased fall risk Patient is assessed as a 16580 moderate complexity based on the following: History: 65-year-old male with impairment level findings, functional limitations, and past medical history as indicated above Examination: Demonstrable impairment in strength, balance, and mobility level with underlying impairments and functional limitations as documented above Presentation: Evolving Decision Makin moderate complexity Goals: N/A. PT evaluation and 1-2 treatment sessions only for functional mobility tra ining using recommended AD and for HEP instruction. Plan of Care/Treatment Plan: N/A. PT evaluation and 1-2 treatment session only for functional mobility training using recommended AD and for HEP instruction. DISCHARGE RECOMMENDATIONS: [] Home with no services [] [] Home with services [specify] [X] Home with outpatient PT. Home when medically cleared by orthopedic surgeon. Will benefit from outpatient services to facilitate return to independent community ambulation and independent ADL performance without an assistive device. [] SNF for continued rehabilitation [] [] Longterm Care [] [] SNF versus LTC based on ability to participate and progress [] TREATMENT CODE/TIME: 07193 x 20 minutes, 58633 x 13 beginning at 13:12 PM. Thank you for the opportunity to participate in the care of this patient. Naomi Phillips PT, DPT, CLT [facility] [place], [place]
[2021-06-06] MEDS: oxyCODONE 5 MG TAB PO (14:04)
--- NOTE | 2021-06-06 16:10 | W.PM.OP ---
Date of service: 06/06/21 Time of Service: 10:30 Operative Note Operative Note DATE OF PROCEDURE: 06/06/21 PRE-OP DIAGNOSIS: Left Hip Chondromalacia POST-OP DIAGNOSIS: same PROCEDURE: Left Anterior Total Hip Arthroplasty with Intraoperative Navigation SURGEON: Willi Jefferson ASP NET PROGRAMMER: Mikala Blanc ANESTHESIA TYPE: Spinal Refer to Anesthesia Record ESTIMATED BLOOD LOSS: 200 PATHOLOGY: none sent COMPLICATIONS: None Patient was transported to: PACU Patient's condition: stable Implants: 1. Depuy [place] Acetabular Component, 54mm 2. Depuy Acetabular Liner, [id number] 3. Depuy Corail Standard 125 degree Collared Femoral Stem, Size 10 4. Depuy Altrx Ceramic Femoral Head, Size 36+8.5mm Indications: I have seen Chacho in clinic for symptoms of hip arthritis, confirmed with radiographic findings. He was having significant limitations in daily function and desired better function and less pain. I discussed the technical details of a hip replacement. I explained the risks of the procedure to include, but not limited to, bleeding, infection, pain, stiffness, fracture, damage to nerves and vessels, damage to muscles and tendons, loosening, instability, leg length inequality, need for repeat procedure, blood clot and cardiopulmonary demise. Despite these risks, Chacho elected to proceed. Findings: There was significant chondromalacia focally along the superior femoral head. Procedure Description: Chacho was greeted in the preoperative holding area where the correct side was identified and marked. The consent was reviewed with the patient and signed. The history and physical was updated. All questions were answered. He was taken back to the operating room. A spinal anesthestic was then administered. The feet were wrapped with cast padding and Coban and then placed into the boot liners and then into the boots. Care was taken to protect the skin and make sure the heels were fully down and the boots were stable. The patient was then positioned onto the HANA table. Both legs were held in a neutral position. SCDs were applied. The patient was then slid down onto a peroneal post. Prophylactic antibiotics in the form of Cefazolin were administered. 1g of Tranxemic Acid was given intravenously within 30 minutes of incision. The left leg was then prepped with Chloraprep and draped in a standard fashion. A second prep with Chloraprep was performed prior to placement of a shower-curtain type drape with Iodine impregnated skin protection. A timeout to confirm correct identity, side and site, procedure, allergies, anesthesia, and medical concerns was performed. An obliquely oriented incision was made starting lateral to the ASIS and running distal over the Tensor Fascia Dea (TFL) muscle belly toward the fibular head, approximately 10cm. The skin and soft tissue was dissected sharply, through Mary?s fascia, and to the fascia of the TFL. With the fascia and superior border of the IT band identified, the fascia was incised with a new knife just above any perforators from the IT band. The TFL muscle belly was bluntly dissected away from the fascia and moved laterally. The fat between TFL and rectus was identified to ensure the dissection was not within the TFL. Blunt dissection created space between abductors and the capsule and retractor was placed over the lateral femoral neck. The fibers of the rectus femoris tendon were identified and these were freed from the anterior capsule. A second cobra retractor was placed around the medial femoral neck. The TFL was further retracted laterally to show the deep fascia. Careful dissection through this layer identified three main crossing vessels of the lateral femoral circumflex. These were cauterized in multiple locations and then cut without any noticeable bleeding. The TFL was further released bluntly from the deep fascia to expose anterior hip capsule and fat The Arnol orthopaedic retractor was then placed beneath the TFL and against sartorius and medial soft tissues to protect and retract the soft tissues. A T-capsulotomy was then performed starting at the superior lateral acetabulum and moving distally to the intertrochanteric ridge. These capsular flaps were tagged with a No. 1 Ethibond and elevated from within. The capsular flaps were released to the shoulder of the lateral neck and to the lesser trochanter to give excellent visualization of the proximal femur. A neck osteotomy was performed using an oscillating saw based on preoperative templates. This cut started in the shoulder and of the lateral neck and exited medially. The saw was at all times directed medially to avoid injury to the greater trochanter. Gross traction was applied to the leg and the osteotomy opened. The femoral head was removed with a corkscrew, making sure to protect the TFL on its exit. Traction was released after head removal. This was measured on the back table to determine the starting reamer size. There was a stripe of chondromalacia over the superior aspect of the femoral head corresponding to the lateral rim of the acetabulum. Portions of the rectus obscuring visualization were minimally elevated off the superior acetabulum. An anterior retractor was placed over the anterior wall between capsule and labrum and attached to the Gripper retraction system. The femur was rotated to 90 degrees and medial capsule was fully released until the lesser trochanter was palpable and visible; the femur was returned to 30 degrees. A posterior retractor was placed similarly between capsule and labrum. This provided excellent visualization. The contents of the cotyloid fossa were removed with electrocautery and the labrum was removed with a knife. Acetabular reaming began with a 50mm reamer. This first reaming was directed anterior to posterior and medial to get down to the true floor. This was inspected and reamed until the true floor was reached. The anterior retractor was then released and entry and exit was provided by traction on the capsular flaps. I then reamed sequentially up to a 54mm reamer where good fit was obtained. The larger reamers were oriented based on anatomical reference of the anterior and lateral valdivia to ensure proper abduction and anteversion. Positioning and size was confirmed with the fluoroscopy. A 54mm Depuy [place] acetabular component was selected. The deep tissues were irrigated. The acetabular component was then impacted in a position of about 40-45 degrees of abduction and 15-20 degrees of anteversion, using the patient?s anatomy as the ultimate landmark. Fluoroscopy was used to confirm this. There was excellent security professionals of the acetabular component and the inserting handle was removed. The acetabular liner, Depuy [id number] polyethylene liner, was inserted and lined up with the tines of the acetabular component. There was no soft tissue interposition. The liner was then impacted into position and confirmed to be well-seated. A portion of the gonzalo-articular cocktail was then injected around the acetabulum into the capsule and periosteum. This cocktail consisted of 50cc of 0.25% Bupivicaine and 20cc of Exparel and 30mg of Ketorolac. The leg was rotated to 120 degrees. Any remaining medial capsule was released until the lesser trochanter was easily palpable. A retractor was placed medially. The lateral capsule was further released into the shoulder to allow access to the greater trochanter. A Villarreal retractor was placed over the greater trochanter which allowed the trochanter to flip in front of the capsule for excellent exposure. The leg was brought down into maximal extension and 20 degrees of adduction while ensuring there was no impingement on the acetabulum. Any remnant capsule within the trochanter was released. Piriformis and obturator externis were identified and protected. There was excellent access to the proximal femur. The lateral neck remnant was removed with a rongeur. A blunt canal probe was used to identify the canal and trajectory for later broaching. A box osteotome initiated the broach course. A small curved rasp and a curved curette were used to work laterally. Broaching then began with a size 8 [place] broach. This was inserted manually around the trochanter and into the canal before mallet blows. At this point, it was obvious that this broach was being held up distally. Therfore, I opened the flexible reamers and reamed the femoral canal form 8.5 to 10.5mm. This was done without difficulty and then broaching resumed. The broach was seated to a few millimeters below the cut level based on the neck cut and the preoperative template. Sequential broaching was continued with the [employer] pneumatic broaching device until a tight fit was obtained with good rotational control of the femur. A trial low neck was inserted along with a +5 trial head. The leg was brought out of extension and adduction and then reduced with traction and internal rotation. The leg was stable anteriorly in a position of 30 degrees of extension and 90 degrees of external rotation. Fluoroscopy was used to ensure there was no fracture and the stem was seated well. Leg lengths were checked with an AP pelvis and pelvic reference points. Kneebone navigation system was used to confirm appropriate positioning and leg length and offset. To increase offset but not leg length, I went up to the 125 standard neck with a +8.5 head. Once content with the desired offset and leg lengths, the leg was brought back into extension, external rotation and adduction. The periosteum and surrounding tissue was injected with remaining portion of the gonzalo-articular cocktail. The proximal femur was irrigated as well as the deep tissues. The Depuy [place] standard 125 collared stem, size 10, was then manually inserted into the proximal femur making sure to control rotation. It was then malleted into position with light blows, giving breaks to allow bone expansion and decrease risk of fracture. The selected Depuy Altrx Ceramic Head, size 36+8.5mm, was then placed onto the clean and dry trunnion and secured with impaction onto the tapered fit. The leg was brought back out of extension and adduction and reduced with traction and internal rotation. Stability was confirmed with no shuck at 90 degrees of external rotation and 30 degrees of extension. No impingement through range of motion arc. Final x-ray images were obtained with fluoroscopy to confirm adequate positioning and no intraoperative fracture. The deep tissues were thoroughly irrigated with Surgiphor betaine solution. This was allowed to sit for 3 minutes and then it was irrigated with saline. The capsule was then reapproximated with the previously placed Ethibond sutures. The TFL fascia was finally closed with a No. 2 Stratafix, barbed suture. Deep tissues were then reapproximated with 0 Vicryl and a running 2-0 Vicryl. The skin was closed with a running 4-0 Monocryl in a subcuticular fashion. This was reinforced with skin glue. A Mepilex silver dressing was applied. At the end of the case, all counts were correct. Edil was transferred to the hospital bed without difficulty and suffering no apparent complication. Chacho has a good prognosis. Physical therapy will start today and without restrictions, weight-bearing as tolerated. Aspirin 81mg BID will be used for DVT prophylaxis.
== END 2021-06-06 14:45 | disposition home or self-care (01) ==
PROVIDERS: PCP Family Medicine; Visit Provider Student in an Organized Health Care Education/Training Program
PROC: (CPT 27130; principal; 2021-06-06 09:30)
DX: M16.12 Unilateral primary osteoarthritis, left hip (principal); M94.252 Chondromalacia, left hip; I10 Essential (primary) hypertension; E78.5 Hyperlipidemia, unspecified; M54.40 Lumbago with sciatica, unspecified side
CPT/HCPCS: 20985; 27130; C1776; 97162; 97530; 73501; J0690; J1885; J2250; J2370; J2405; J3490

== ENCOUNTER 2021-06-21 12:11 | Outpatient (CLI) | payer MEDICARE, BC, SELFPAY ==
--- NOTE | 2021-06-21 10:00 | DI.RAD_ITS ---
Exam(s) XR HIP LT COMPLETE AP PELVIS EXAM: XR HIP LT COMPLETE AP PELVIS CLINICAL HISTORY: 1ST POST OP L MARIA ALEJANDRA TECHNIQUE: COMPARISON: CR XR HIP LT COMPLETE AP PELVIS from 05/29/2021 FINDINGS: Two views were obtained. There is a total hip joint replacement position on the left. The component s appear well seated. There are mild degenerative changes of the right hip. No other significant [place] abnormality seen. IMPRESSION: RADIATION DOSE DELIVERED: Total DLP
== END 2021-06-21 12:12 | disposition home or self-care (01) ==
LOC: DIORS 12:11
PROVIDERS: PCP Family Medicine; Referring Provider Family Medicine; Visit Provider Student in an Organized Health Care Education/Training Program
DX: Z96.642 Presence of left artificial hip joint (principal)
CPT/HCPCS: 73502

== ENCOUNTER → 2021-07-26 09:18 | Outpatient (BNVA) | payer MEDICARE, BC, SELFPAY | PROVIDERS: PCP Family Medicine; Referring Provider Family Medicine; Visit Provider Student in an Organized Health Care Education/Training Program | DX: Z47.1 Aftercare following joint replacement surgery (principal); Z96.642 Presence of left artificial hip joint ==

== ENCOUNTER 2021-11-01 04:03 | Outpatient (CLI) | payer MEDICARE, BC, SELFPAY ==
[2021-11-01 22:35] LABS: PSA, Screening 6.4 ng/mL (<=4.5)
== END 2021-11-01 04:04 | disposition home or self-care (01) ==
LOC: LBO 04:03
PROVIDERS: PCP Family Medicine; Visit Provider Nurse Practitioner Gerontology
DX: N42.89 Other specified disorders of prostate (principal); Z12.5 Encounter for screening for malignant neoplasm of prostate
CPT/HCPCS: 36415; 84153

== ENCOUNTER → 2021-11-06 08:49 | Outpatient (BNVA) | payer MEDICARE, BC, SELFPAY | PROVIDERS: PCP Family Medicine; Referring Provider Family Medicine; Visit Provider Nurse Practitioner Gerontology | DX: N40.2 Nodular prostate without lower urinary tract symptoms (principal); R97.20 Elevated prostate specific antigen [PSA] | CPT/HCPCS: 99214 ==

== ENCOUNTER → 2021-12-10 07:54 | Outpatient (BNVA) | payer MEDICARE, BC, SELFPAY | PROVIDERS: PCP Family Medicine; Referring Provider Family Medicine; Visit Provider Nurse Practitioner Gerontology | DX: R39.15 Urgency of urination (principal); M54.50 Low back pain, unspecified; N40.2 Nodular prostate without lower urinary tract symptoms; R97.20 Elevated prostate specific antigen [PSA] | CPT/HCPCS: 99214 ==

== ENCOUNTER → 2021-12-17 01:50 | Outpatient (CLI) | payer MEDICARE, BC, SELFPAY ==
--- NOTE | 2021-12-17 06:45 | DI.US_ITS ---
Exam(s) US PROSTATE BIOPSY EXAM: US PROSTATE BIOPSY CLINICAL HISTORY: PI-RADs 5, nodular area,prostate nodule,n40.2 TECHNIQUE: Transrectal ultrasound performed for guidance with performing prostate biopsy. COMPARISON: No exams were available for comparison FINDINGS: Prostate volume 49 mL.. Please see procedure note for details. DATA REPOSITORY:
--- NOTE | 2021-12-17 10:30 | PROST_PTH ---
PATIENT: Edil Arce LOC: [facility] U#:[id number] AGE/SX: 69/M ROOM: RE12/17/[address]: Denisha Brooke DNP : 1955 BED: DIS: SPEC #: [id number] RECD: 12/17/21 12:49 STATUS: GRETCHEN CHANDRA #: [id number] MICHAEL: 12/17/21 10:[address]: Denisha Brooke DEPT: Surgical Specimen RECD BY: Toña Jeter ENTERED: 12/17/21 12:52 SP TYPE: PROST OTHR DR: Joe Arreola DO Tissues: 1 - PROSTATE NEEDLE BIOPSY 2 - PROSTATE NEEDLE BIOPSY 3 - PROSTATE NEEDLE BIOPSY 4 - PROSTATE NEEDLE BIOPSY 5 - PROSTATE NEEDLE BIOPSY 6 - PROSTATE NEEDLE BIOPSY 7 - PROSTATE NEEDLE BIOPSY 8 - PROSTATE NEEDLE BIOPSY 9 - PROSTATE NEEDLE BIOPSY 10 - PROSTATE NEEDLE BIOPSY 11 - PROSTATE NEEDLE BIOPSY 12 - PROSTATE NEEDLE BIOPSY Procedures: GROSS AND MICRO LEVEL 4 IMMUNOPEROXIDASE STAIN Comments: [id number]
--- NOTE | 2021-12-17 10:50 | ROE_ITS ---
Date of service: 12/17/21 Time of Service: 10:50 Operative Note Operative Note DATE OF PROCEDURE: 12/17/21 PRE-OP DIAGNOSIS: Elevated PSA POST-OP DIAGNOSIS: same PROCEDURE: Transrectal ultrasound-guided biopsy of the prostate SURGEON: Jak Berkowitz ANESTHESIA TYPE: Local By Surgeon Refer to Anesthesia Record ESTIMATED BLOOD LOSS: 5 PATHOLOGY: other (12 laterally directed biopsies of prostate) COMPLICATIONS: None Patient was transported to: no change Patient's condition: stable Implants: none Indications: This is a 66-year-old gentleman who has an elevated PSA of 6.5 ng/mL. There is some firmness on the right side of his prostate on digital rectal exam. On multiparameter prostate MRI, there is an abnormality in the right transition zone that is suspicious for a clinically significant prostate cancer. He presents for ultrasound-guided biopsy of the prostate Findings: Prostate volume 41 cc Procedure Description: The patient was given a mechanical and antibiotic bowel prep. He was brought to the radiology suite on 12/17/2021 He was placed in the left lateral position. Transrectal imaging of the prostate was then performed using a variable megahertz transducer. The prostate was angy ged in transverse and longitudinal planes. The prostatic volume was calculated at 41 cc. A periprostatic nerve block was then performed using 1% lidocaine. The peripheral zone appeared normal. On the right apex, there was a hypoechoic nodule in the right transition zone. No additional abnormalities were found. Laterally directed biopsies were taken from the prostate. Each of the biopsies was labeled and sent to pathology for permanent section. The apical biopsies were taken through the hypoechoic lesion. He tolerated this procedure well with no complications.
== END ==
PROVIDERS: PCP Family Medicine; Visit Provider Nurse Practitioner Gerontology
DX: C61 Malignant neoplasm of prostate (principal)
CPT/HCPCS: 55700; 76942; 88305; 88361

== ENCOUNTER → 2022-01-01 14:45 | Outpatient (BNVA) | payer MEDICARE, BC, SELFPAY | PROVIDERS: PCP Family Medicine; Referring Provider Family Medicine; Visit Provider Urology | DX: C61 Malignant neoplasm of prostate (principal) | CPT/HCPCS: 99215 ==

== ENCOUNTER 2022-06-20 10:33 | Outpatient (CLI) | payer MEDICARE, BC, SELFPAY ==
--- NOTE | 2022-06-20 09:30 | DI.RAD_ITS ---
Exam(s) XR HIP LT AP LAT ONLY EXAM: XR HIP LT AP LAT ONLY CLINICAL HISTORY: ANNUAL F/U L MARIA ALEJANDRA. TECHNIQUE: 2D digital imaging was performed. Three images were obtained. AP and lateral views were obtained. COMPARISON: CR XR HIP LT COMPLETE AP PELVIS from 06/21/2021 FINDINGS: BONES: There are stable post operative changes present. No fracture or dislocation. JOINTS: The orthopedic hardware is in good position. No evidence of hardware loosening. SOFT TISSUE: Normal. IMPRESSION: Stable postoperative changes. DATA REPOSITORY: RADIATION DOSE DELIVERED:
== END 2022-06-20 10:34 | disposition home or self-care (01) ==
LOC: DIORS 10:33
PROVIDERS: PCP Family Medicine; Referring Provider Family Medicine; Visit Provider Student in an Organized Health Care Education/Training Program
DX: Z96.642 Presence of left artificial hip joint (principal); Z47.1 Aftercare following joint replacement surgery
CPT/HCPCS: 99213; 73502

== ENCOUNTER 2022-09-20 01:49 | Outpatient (CLI) | payer MEDICARE, BC, SELFPAY ==
[2022-09-21 15:45] LABS: PSA, Ultrasensitive 0.58 ng/mL (<= 4.5)
== END 2022-09-20 01:50 | disposition home or self-care (01) ==
LOC: LBO 01:50
PROVIDERS: PCP Family Medicine; Visit Provider Radiology Radiation Oncology
DX: C61 Malignant neoplasm of prostate (principal)
CPT/HCPCS: 36415; 84153

== ENCOUNTER 2023-04-02 11:01 | Outpatient (CLI) | payer MEDICARE, BC, SELFPAY ==
[2023-04-03 19:39] LABS: PSA, Ultrasensitive 0.14 ng/mL (<= 4.5)
== END 2023-04-02 11:02 | disposition home or self-care (01) ==
LOC: LBO 11:01
PROVIDERS: PCP Family Medicine; Visit Provider Nurse Practitioner Family
DX: C61 Malignant neoplasm of prostate (principal)
CPT/HCPCS: 36415; 84153

== ENCOUNTER → 2023-05-01 11:21 | Outpatient (BNVA) | payer MEDICARE, BC, SELFPAY | PROVIDERS: PCP Family Medicine; Referring Provider Family Medicine; Visit Provider Physical Therapy Assistant | DX: Z12.11 Encounter for screening for malignant neoplasm of colon (principal); Z86.010 Personal history of colon polyps ==

== ENCOUNTER 2023-05-12 07:02 | Day surgery (SDC) | payer MEDICARE, BC, SELFPAY ==
--- NOTE | 2023-05-11 11:33 | W.PM.DSUDISC ---
Date of service: 05/12/23 Time of Service: 08:51 Discharge Plan Disposition Patient Disposition: Home Condition: Good Discharge Details Reason For Visit: screening colonoscopy Attending Provider: Daniel Valerio Primary Care Provider: Joe Arreola Home Meds and New Rx's Prescriptions: Continued tadalafil [Cialis] 10 mg tablet 10 mg PO DAILY PRN (Reason: sexual activity) Qty: 10 6RF Rx Instructions: administer approximately 30min before sexual activity; do not use more than 1 dose per 24hrs atorvastatin 40 mg tablet 40 mg PO QHS Qty: 90 3RF losartan 25 mg tablet 25 mg PO DAILY Qty: 90 3RF Discontinued bisacodyl [Dulcolax (bisacodyl)] 5 mg tablet,delayed release (DR/EC) 5 mg PO ONCE Qty: 4 0RF Rx Instructions: Take per colonoscopy instructions provided by ordering providers office polyethylene glycol 3350 17 gram/dose powder 17 g PO ONCE Qty: 238 0RF Rx Instructions: Take per colonoscopy instructions provided by ordering providers office Discharge Instructions Instructions: Colorectal Polyps (GEN) Additional Instructions: Edil, we were able to complete your colonoscopy today without much difficulty. You did have 2 polyps, which I removed completely. Once I have the results of the polyp report, I will be in touch with recommendations for the timing of your next colonoscopy. If you have any questions in the meantime, please do not hesitate to call or ask at any point. 1. If tolerated, consume a soft, low fiber diet for 1-2 days. 2[address] Do not drive, drink alcohol, operate machinery, make critical decisions, or do activities that require coordination or balance for 24 hours. 3. Because air was put into your colon during the procedure, expelling air from your rectum (passing gas or farting) is normal. 4. You may not have a bowel movement for 1-3 days because of the colonoscopy prep. This is normal. 5. Go directly to the emergency room if you notice any of the following: Develop chills (warm to touch), or if you have a thermometer and your temperature is above 101 Difficulty breathing or difficultly swallowing Persistent vomiting Severe abdominal pain, other than gas cramps Severe chest pain Black, tarry stools Any bleeding ? exceeding one tablespoon 6. Call your physician if the site where your intravenous was started becomes red, swollen, painful, and warm to touch. 7. Your physician has reviewed your pre-procedure medications. Please continue to take those medications as previously ordered. You will be given specific information/education regarding any changes to your medications before leaving. Activity:: Activity as Tolerated Diet:: As Tolerated Discharge Orders Discharge Orders: Discharge Order (Routine); Ordered 05/11/23 Ordered By: Daniel Valerio DS: Diagnosis Discharge Diagnosis (1) Encounter for screening colonoscopy: Status: Acute Asessment and Plan: Follow-up on polypectomy results
--- NOTE | 2023-05-11 11:35 | COLE_ITS ---
Date of service: 05/12/23 Time of Service: 08:57 Colonoscopy Report Date of procedure: 05/12/23 Pre-op diagnosis general: screening colonoscopy Post-op diagnosis procedure note: other (Colon polyps) Procedure: colonoscopy Surgeon: Daniel Valerio Anesthesia Type: General:No Airway Estimated blood loss (mL): 10 Pathology: other (0.5 cm polyp at 20 cm, 0.25 cm polyp at 55 cm) Complications: None Disposition: same day Indications: Edil is a 67 year old man who needs his next screening colonoscopy Prep: Miralax/Dulcolax Procedure Start Time: 08:14 Procedure End Time: 08:42 Retraction Time: 10 Findings: 0.5 cm polyp at 20 cm, 0.25 cm polyp at 55 cm Procedure Description: After the induction of monitored anesthetic care, and with the patient in left lateral decubitus position, I began by performing an external anorectal exam.? Perineum and skin were normal, as was the anal verge.? There was no evidence of external hemorrhoids.? Next, I performed a digital rectal exam.? I did not appreciate any abnormal findings.? Next, I advanced a colonoscope into the rectal vault.? I performed retroflexion.? This appeared normal.? Using insufflation, I then advanced the colonoscope beyond the rectal folds and into the sigmoid colon before advancing towards the cecum.? Around 20 cm from the anal verge was a 0.5 cm polyp. Although it was mostly flat, the edge was lifted slightly. This was removed with cold snare polypectomy without any issue. There was minimal bleeding. We continued advancing.? The scope was noted to be in the cecum by identification of the ileocecal valve and appendiceal orifice.? I then began withdrawing the colonoscope using repeated irrigation as necessary for full evaluation of the colonic mucosa. Around 55 cm from the anal verge was another polyp. This was approximately 0.25 cm. Narrowband imaging was used to assist with analysis. ?This polyp was removed with cold forceps polypectomy without any issue. Once the scope was withdrawn to the level of the rectum, great care was taken to examine portions of the rectal folds.? Finally, the scope was withdrawn and the patient was brought to the same-day surgery recovery unit as the anesthetic wore off. ?The findings and instructions were shared with the patient prior to discharge. [place] Bowel Prep [place] Bowel Prep Right Colon: 3 Left Colon: 3 Transverse Colon: 3 Total Score: 9
[2023-05-12 07:10] VITALS: BP 117/94; PULSE 73; RESP 18; TEMP 36.4; O2SAT 96
[2023-05-12] MEDS: Lactated Ringers 1,000 ML 80 ML IV (07:27)
--- NOTE | 2023-05-12 07:45 | W.ANESPRE ---
General Info Date of Service Date Performed: 05/12/23 Height: 5 ft 7 in Weight: 81.2 kg Body Mass Index (BMI): 28.0 Surgical Procedure: Operation Date: 05/12/23 08:20 Proposed Procedure Side Surgeon lucila Valerio MD Meds Allergies and Home Medications Allergies Allergy/AdvReac Type Severity Reaction Status Date / Time Penicillins Allergy Unknown unknown Verified 05/12/23 07:14 lisinopril AdvReac Mild cough Verified 05/12/23 07:14 Home Medication Medication Instructions Recorded tadalafil 10 mg tablet (Cialis) 10 mg PO DAILY PRN sexual activity 03/09/18 #10 tabs atorvastatin 40 mg tablet 40 mg PO QHS #90 tabs 02/14/23 losartan 25 mg tablet 25 mg PO DAILY #90 tabs 04/24/23 Current Visit Medications: Current Medications Generic Name Dose Route Start Last Admin Trade Name Freq PRN Reason Stop Dose Admin Hyoscyamine Sulfate 0.125 mg 05/11/23 11:36 Hyoscyamine 0.125 Mg Sl/Oral/Chew SL 06/10/23 11:35 DIRECTED PRN Ringer's Solution 1,000 mls @ 80 mls/hr 05/12/23 06:00 05/12/23 07:27 IV 06/08/23 23:59 80 mls/hr INFUSION MARTIN Administration IV Miscellaneous Supplies 1 each 05/12/23 06:00 Iv Access IV 06/08/23 23:59 DIRECTED MARTIN Ondansetron HCl 4 mg 05/11/23 11:36 Ondansetron 4 Mg/2 Ml Vial IVP 06/10/23 11:35 Q4H PRN PRN Nausea / Vomiting Sodium Chloride 0 ml 05/12/23 06:00 Normal Saline Flush 10 Ml Syr IV 06/08/23 23:59 PRN PRN Sodium Chloride 0 ml 05/12/23 06:00 Normal Saline 10 Ml Vial IJ 06/08/23 23:59 DIRECTED PRN Sterile Water 0 ml 05/12/23 06:00 Water,Injection,Sterile 10 Ml Vial IJ 06/08/23 23:59 DIRECTED PRN PFSH Active Problems Active Problems: Problem Status Onset Code Encounter for screening colonoscopy Z12.11 Dry eye syndrome 04/10/22 H04.129 History of squamous cell carcinoma Z85.89 Hamstring muscle strain S76.319A Prostate cancer C61 Heart murmur R01.1 Essential hypertension I10 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 Chronic left hip pain M25.552, G89.29 Low back pain M54.50 Sciatic leg pain M54.30 Diverticulosis K57.90 S/P colonoscopy ~12/07/18 Z98.890 Actinic keratoses 08/22/14 L57.0 Hyperlipidemia 01/15/13 E78.5 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 Plantar fasciitis of right foot 08/04/13 M72.2 Rosacea 12/06/11 L71.9 Other sleep disturbances 12/06/11 G47.8 Sciatica 08/31/02 M54.30 Medical History Medical History History of external beam radiation therapy Elevated PSA Tubular adenoma of colon (12/31/13) distal sigmoid tub adenoma, rpt 5 yr Surgical History Surgical History History of left hip replacement (06/06/21) History of shoulder surgery (06/06/21) L rotator cuff punch biopsy (01/19/15) L shoulder Excision, Lesion (03/09/13) R arm excision non-healing ulcer-Squamous cell carcinoma Dr Man Colonoscopy - IV Sedation (03/09/04) 2014- tubular adenoma Tobacco Smoking/Tobacco Use Status: Never Passive smoking exposure: Yes (In childhood) Alcohol Alcohol Intake: current Alcohol intake frequency: a few times a week Alcohol type: beer and wine Substance Use Substance use: Never Substance use type: does not use Vital Signs and Lab Results Vital Signs Most Recent Vital Signs in EMR: Most Recent Vital Signs Temp Pulse Resp BP Pulse Ox 36.4 C L 73 18 117/94 H 96 05/12/23 07:10 05/12/23 07:10 05/12/23 07:10 05/12/23 07:10 05/12/23 07:10 Lab Results Blood Type / Crossmatch: No Data to Display Complete Blood Count: No Data to Display Complete Metabolic Panel: No Data to Display Liver Function Panel: No Data to Display Coagulation Panel: No Data to Display Cardiac Panel: No Data to Display Arterial Blood Gas: No Data to Display Venous Blood Gas: No Data to Display Pancreas Panel: No Data to Display Thyroid Panel: No Data to Display Infectious Disease: No Data to Display Blood Cultures: No Data to Display Toxicology Panel: No Data to Display Anesthesia Assessment and Plan Anesthesia History Personal History: No History of Anesthesia Complications Family History: No Family History of Anesthesia Complications Exercise Tolerance Exercise Tolerance: Metabolic Equivalents>4 Pertinent Negatives Pertinent Negatives: No Symptoms of GERD Cardiac & Pulmonary Exam Cardiac Exam: Normal S1/S2 Heart Sounds Pulmonary Exam: Clear Bilateral Breath Sounds Implantable Cardiac Device Does patient have a Pacemaker or an ICD?: No Airway Exam Known Difficult Airway: No Mallampati Class: 1 Mouth Opening: Normal (> 3cm) Thyromental Distance: Greater than 3 cm Neck Range of Motion: Full ROM Neck Circumference: Normal Teeth Condition: Normal Dentition ASA Classification ASA Score: ASA 2 Emergency Case?: No NPO Status NPO Status: NPO Clears >2 hours, Solids >8 hours Anesthesia Plan Resuscitation Status: Full Code Anesthesia Technique: General Anesthesia Airway Planned: Natural Airway Monitors Used: Standard Monitors
[2023-05-12 07:48] VITALS: BMI 28.0
--- NOTE | 2023-05-12 08:18 | BOWEL_PTH ---
PATIENT: Edil Arce LOC: [facility] U#:[id number] AGE/SX: 67/M ROOM: RE05/12/[address]: Daniel Valerio MD : [id number] BED: DIS: 05/12/2023 SPEC #: [id number] RECD: 05/12/23 12:03 STATUS: GRETCHEN RE #: [id number] MICHAEL: 05/12/23 08:[address]: Daniel Valerio DEPT: Surgical Specimen RECD BY: Toña Jeter ENTERED: 05/12/23 12:05 SP TYPE: Bowel OTHR DR: Joe Arreola DO Tissues: 1 - BIOPSY BOWEL 2 - BIOPSY BOWEL Procedures: GROSS AND MICRO LEVEL 4 Comments: [id number]
[2023-05-12 08:52] VITALS: BP 109/83; PULSE 71; RESP 16; TEMP 36.3; O2SAT 91
--- NOTE | 2023-05-12 09:07 | W.ANESPOSTOP ---
Postoperative Evaluation Date, Time and Location Date Performed: 05/12/23 Time Performed: 09:07 Patient Location: Day Surgery Unit Vital Signs Most Recent Imported Vital Signs: Most Recent Vital Signs Temp Pulse Resp BP Pulse Ox 36.3 C L 71 16 109/83 91 L 05/12/23 08:52 05/12/23 08:52 05/12/23 08:52 05/12/23 08:52 05/12/23 08:52 Assessment Mental Status: Arousable with meaningful communication Airway and Respiratory Function: Patent airway with normal (patient baseline) respiratory exam Cardiovascular Function: Hemodynamically Stable Hydration Status: Adequately Hydrated Nausea & Vomiting: No Nausea or Vomiting Pain: Pt. Denies Any Pain Peripheral Nerve Block: Patient did not receive a nerve block
[2023-05-12 09:25] VITALS: BP 132/90; PULSE 57; RESP 16; TEMP 36.5; O2SAT 95
== END 2023-05-12 09:42 | disposition home or self-care (01) ==
LOC: SUR 07:02
PROVIDERS: PCP Family Medicine; Visit Provider Surgery
PROC: 0DJD8ZZ Inspection of Lower Intestinal Tract, Via Natural or Artificial Opening Endoscopic (ICD-10-PCS; CPT 45378; principal; 2023-05-12 08:15)
DX: Z12.11 Encounter for screening for malignant neoplasm of colon (principal); D12.5 Benign neoplasm of sigmoid colon
CPT/HCPCS: 45385; 45380; 88305; J2704

== ENCOUNTER → 2023-05-26 07:54 | Outpatient (BNVA) | payer MEDICARE, BC, SELFPAY | PROVIDERS: PCP Family Medicine; Referring Provider Family Medicine; Visit Provider Student in an Organized Health Care Education/Training Program | DX: R29.898 Other symptoms and signs involving the musculoskeletal system (principal) | CPT/HCPCS: 99213 ==

== ENCOUNTER 2023-08-18 09:10 | Outpatient (CLI) | payer MEDICARE, BC, SELFPAY ==
--- NOTE | 2023-08-18 08:30 | DI.RAD_ITS ---
Exam(s) XR HIP PELVIS ADULT BL EXAM: XR HIP PELVIS ADULT BL CLINICAL HISTORY: RIGHT HIP PAIN. TECHNIQUE: 2D digital imaging was performed of the pelvis and bilateral hips. Three images were obt ained. AP pelvis and lateral views of both hips were obtained. COMPARISON: CR XR HIP LT AP LAT ONLY from 06/20/2022 FINDINGS: BONES: No acute fracture is present. No bony destructive lesion is seen. JOINTS: No dislocation present. There are stable findings of a left total hip replacement. No lucenc ies are seen in or about the orthopedic hardware to suggest loosening. The right hip is well maintai lady. SOFT TISSUE: There are surgical clips seen inferior to the pelvis which may reflect prior vasectomy. IMPRESSION: 1. Unremarkable right hip. 2. Stable left total hip replacement. DATA REPOSITORY: RADIATION DOSE DELIVERED:
== END 2023-08-18 09:11 | disposition home or self-care (01) ==
LOC: DIORS 09:10
PROVIDERS: PCP Family Medicine; Referring Provider Family Medicine; Visit Provider Student in an Organized Health Care Education/Training Program
DX: R29.898 Other symptoms and signs involving the musculoskeletal system (principal); Z96.642 Presence of left artificial hip joint
CPT/HCPCS: 73521; 99213

== ENCOUNTER 2023-11-19 09:05 | Outpatient (CLI) | payer MEDICARE, BC, SELFPAY ==
[2023-11-21 12:40] LABS: PSA, Ultrasensitive 0.03 ng/mL (<= 4.5)
== END 2023-11-19 09:06 | disposition home or self-care (01) ==
LOC: LBO 09:06
PROVIDERS: PCP Family Medicine; Visit Provider Nurse Practitioner
DX: C61 Malignant neoplasm of prostate (principal)
CPT/HCPCS: 36415; 84153

== ENCOUNTER 2024-03-19 19:13 | Inpatient (IN) | payer MEDICARE, BC, SELFPAY ==
[2024-03-19] VITALS (48 sets, daily range): BP systolic 108–159; BP diastolic 54–98; PULSE 70–97; RESP 13–22; TEMP 38.7; O2SAT 79–95
--- NOTE | 2024-03-19 19:15 | ED.GENADUL_ITS ---
Discharge Plan Disposition Patient Disposition: Admit to [facility] Discharge Details Clinical Impression: Acute encephalopathy, Community acquired pneumonia Primary Care Provider: Joe Arreola ED Provider: Coy Gardiner Home Meds and New Rx's Prescriptions: No Action tadalafil [Cialis] 10 mg tablet 10 mg PO DAILY PRN (Reason: sexual activity) Qty: 10 6RF Rx Instructions: administer approximately 30min before sexual activity; do not use more than 1 dose per 24hrs atorvastatin 40 mg tablet 40 mg PO QHS Qty: 90 3RF losartan 25 mg tablet 25 mg PO DAILY Qty: 90 3RF HPI General Date/Time Provider Initiated Documentation: 03/19/24 20:23 . HPI Narrative: MDM This is an altered febrile but not tachycardic or hypotensive 68-year-old male found down following unwitnessed fall. Given upper respiratory symptoms we will obtain a chest x-ray. Given confusion and reported left lower extremity weakness I obtained a teleneuro consult after complete CT angiogram of the patient's head and neck which was negative for any critical stenoses. No chest pain to suggest dissection. Patient has no nuchal rigidity so no indication for lumbar puncture. No pain or proportion to suggest necrotizing soft tissue infe ction. No tonic-clonic activity so no indication for EEG. Patient is not septic however given concern and chest x-ray for infiltrate I ordered blood cultures prior to treating with ceftriaxone and doxycycline. Patient has an elevated port score. I treated fever with acetaminophen. I was in touch with Dr. Gregory who agreed to accept the patient. On CT scan he did have small pneumonia. His viral swab was negative. He is stable on room air. No chest pain to suggest ACS and ECG is nonischemic. Tonic-clonic activity to suggest seizure so I do not feel that the patient requires an EEG. Neurology saw the patient did not feel he required an MRI given his encephalopathy. HPI This is a 68-year-old male brought in the emergency department via EMS following a fall. Patient reportedly had an unwitnessed fall in his garage earlier today. He has had some confusion. He has had upper respiratory symptoms for several days. He was nauseous vomiting. He remembers walking out to the garage . She does not recall falling. He is not complaining of any pain. Unable to complete additional history secondary to the acuity of the patient's presentation. Exam General: Well-appearing in no acute distress speaking in complete sentences. Head: Normocephalic, atraumatic. Eye:[Pupils equal, round reactive to light.] Extraocular eye movements intact. No conjunctival injection. No scleral icterus. Ear, nose, mouth, throat: Grossly normal inspection. Normal voice, handling secretions normally. Neck: Trachea midline. Cardiovascular: Well-perfused distal extremities. Respiratory: Nonlabored respiration. Clear lungs Gastrointestinal: Nondistended abdomen. Soft abdomen Musculoskeletal: No edema. Moving all 4 extremities spontaneously. Skin: Normal for age and race, grossly normal temperature and turgor. No acute rash. Neurologic: Alert. Difficulty following commands. GCS 14: E4, V4, M6. No gaze deviation. Please see neuronote for stroke scale. Psychiatric: Mood and manner are appropriate. Grooming and personal hygiene are appropriate. Related Data Home Medications ?Medication ?Instructions ?Recorded ?Confirmed tadalafil 10 mg tablet (Cialis) 10 mg PO DAILY PRN sexual activity 03/09/18 01/02/24 #10 tabs losartan 25 mg tablet 25 mg PO DAILY #90 tabs 04/24/23 01/02/24 atorvastatin 40 mg tablet 40 mg PO QHS #90 tabs 01/02/24 01/02/24 Previous Rx's ?Medication ?Instructions ?Recorded tadalafil 10 mg tablet (Cialis) 10 mg PO DAILY PRN sexual activity 03/09/18 #10 tabs losartan 25 mg tablet 25 mg PO DAILY #90 tabs 04/24/23 atorvastatin 40 mg tablet 40 mg PO QHS #90 tabs 01/02/24 Allergies Allergy/AdvReac Type Severity Reaction Status Date / Time Penicillins Allergy Unknown unknown Verified 01/02/24 08:08 lisinopril AdvReac Mild cough Verified 01/02/24 08:08 General KATHARINA: 4 Medical Decision Making Quality:SDOH Health Related Social Needs: No Data to Display PFSH All Active Problems (Updated 03/19/24 @ 22:52 by Coy Payton) Acute hypoxemic respiratory failure (Acute) Renal insufficiency, mild (Acute) DVT prophylaxis (Acute) Community acquired pneumonia (Acute) Acute encephalopathy (Acute) Chalazion left lower eyelid (Acute) Balanitis (Acute) Weakness of right hip (Acute) Encounter for screening colonoscopy (Acute) Dry eye syndrome (Acute 04/10/22) [facility] History of squamous cell carcinoma (Acute) Hamstring muscle strain (Acute) Prostate cancer (Chronic) Heart murmur (Acute) Essential hypertension (Acute) Femoral acetabular impingement (Acute) Chronic left hip pain (Acute) Low back pain (Acute) Sciatic leg pain (Acute) Diverticulosis (Acute) S/P colonoscopy (Acute ~12/07/18) Actinic keratoses (Chronic 08/22/14) L fawn, h/o Amy, H/o Paresh 02/2012 Hyperlipidemia (Chronic 01/15/13) LDL 132; RISK 10% REC [employer] Impotence of organic origin (Chronic 12/06/11) Rosacea (Chronic 12/06/11) dr chavez Other sleep disturbances (Chronic 12/06/11) no longer using meds 06/2012 Medical History (Updated 03/19/24 @ 22:52 by Coy Payton) S/P radiotherapy History of SCC (squamous cell carcinoma) of skin History of external beam radiation therapy Elevated PSA Tubular adenoma of colon (12/31/13) distal sigmoid tub adenoma, rpt 5 yr Surgical History (Updated 05/19/23 @ 14:38 by Val Wang RN) History of colonoscopy (~04/2023) path sent. tubular adenoma. repeat 5yrs History of left hip replacement (06/06/21) History of shoulder surgery (06/06/21) L rotator cuff punch biopsy (01/19/15) L shoulder Excision, Lesion (03/09/13) R arm excision non-healing ulcer-Squamous cell carcinoma Dr Man Colonoscopy - IV Sedation (03/09/04) 2014- tubular adenoma Family History Mother Emphysema lung Father Personal history of malignant neoplasm lung Sister Personal history of malignant neoplasm brain cancer Other Tubular adenoma of colon Social History Smoking/Tobacco Use Status: Never Smoking risk assessment performed?: Yes Alcohol Intake: current Alcohol Intake frequency: a few times a week Alcohol type: beer and wine Drug use: Never Substance use type: does not use Adopted: No Caregiver/Support person: No Household members: spouse Housing: house Number of Children: 5 number of grandchildren: 5 Communication Needs: None Education Level: college 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 Pets and animals: Yes (1) Pets and animals: dog(s) Sexually active: Yes Do you think of yourself as: straight/heterosexual Current gender identity: male What is your relationship status?: How often do you talk on the phone with friends or family?: three or more times per week How often do you get together with friends or relatives?: once per week How often do you attend sabianist or holiness services?: decline to answer Do you belong to any clubs or organized social groups?: no Panel score (0-1 are the most socially isolated patients): 2 What type of physical activity do you participate in: other Details: light weights/ treadmill when hip is good Duration: < 15 minutes/day Frequency: 1-2 times per week Mirela/Restorationism: Gnosticism Special mirela needs: No Seatbelt use: always Helmet use: Yes Helmet use: always Drive intox or ride w/intox class a regional truck driver: No Working smoke detector in home: Yes Fire extinguisher in home: Yes Carbon monox detector in home: Yes Do you feel safe at home: Yes Do you feel safe in your relationship?: Yes
--- NOTE | 2024-03-19 19:28 | DI.CT_ITS ---
Exam(s) CT BRAIN NECK CTA EXAM: CT BRAIN NECK CTA xz CLINICAL HISTORY: Generalized weakness. TECHNIQUE: Imaging Protocol: Axial CT angiography was performed with multi-slice acquisition and mu lti-planar and/or 3D reconstructions. CONTRAST MATERIAL: Intravenous: Omnipaque 350 Contrast volume:structured data in ml COMPARISON: CR LEFT RIBS TO INCLUDE CXR from 09/23/2008 FINDINGS: CTA Neck W: Aortic arch anatomy: The aortic arch anatomy is conventional and there is no significant stenosis at the origin of the great vessels off of the aortic arch. No intimal flap evident. Anterior circulation: Both common carotid arteries ascend with normal luminal diameters. At the level the carotid bulbs and proximal internal carotid arteries there is mild partially calcifi ed plaque noted bilaterally but without hemodynamically significant stenosis. The amount of stenosis is estimated at approximately 20-30 percent on the left side and less than 20 percent on the right s aldo. The internal carotid arteries in the upper aspects of both sides the neck appear nicely patent and non tortuous. Posterior circulation: Both vertebral arteries originate in conventional fashion off of the subclavian arteries and there is no obvious stenosis at the origin of the right vertebral artery. The origin of the left vertebral a rtery is obscured by an opacified vein in this area. The right vertebral artery is dominant and ascends with a luminal diameter of 3.5 mm. The left verte bral artery ascends with a luminal diameter of 3 mm. Both vertebral arteries contribute to the formation of the basilar artery at the skull base. CTA Brain W: Anterior circulation: Both internal carotid arteries are patent in the skull base-carotid canals as well as within the cave rnous sinuses. The supraclinoid aspects of the ICAs are patent. Both A1 segments are patent as are the anterior cer ebral arteries and there is no evidence of aneurysm at the level of the anterior communicating artery . Both middle cerebral arteries are patent with no evidence of significant stenosis nor intraluminal th rombus. There also no aneurysms of these vessels. Posterior circulation: The basilar artery ascends in the midline without significant stenosis.. Distally it gives off paten t bilateral superior cerebellar arteries. Above this level the basilar artery terminates as patent bi lateral posterior cerebral arteries. There is a posterior communicating artery on the right side of the qazrht-mi-[id number] which also contr ibutes to blood flow into the patent right posterior cerebral artery. There is no evidence of aneurysm at the tip of the basilar artery nor elsewhere in the [id number] is. CT BRAIN: There is no evidence of intracranial hemorrhage, mass effect, or shift of midline structures. There are no extra-axial fluid collections. Ventricles are not enlarged or shifted. There are no ring enh ancing lesions in the brain and no abnormal meningeal enhancement. IMPRESSION: 1. There is calcified plaque at the left carotid bulb and proximal left internal carotid artery with approximately 20-30 percent stenosis at this level. Lesser amount of plaque and lesser amount of rayray nosis at same location on the opposite-right side. 2. Patent vertebral arteries. The right vertebral artery is dominant. No evidence of obvious stenos is of the vertebral arteries although the origin of the left vertebral artery is partially obscured b y an overlying opacified vein in this region. There is no evidence of vertebral artery dissection. 3. Patent intracranial arteries. No significant intracranial stenosis nor thrombosis. No aneurysms. No evidence of vascular malformation in the brain. No ring enhancing lesions nor abnormal meningea l enhancement. 4. No evidence of intracranial hemorrhage nor obvious territorial infarct. Report called by myself to ER physician 03/19/2024 at 7:52 p.m. RADIATION DOSE DELIVERED: 2,201.61mGy.cm Total DLP DATA REPOSITORY: All CT scans at this facility are submitted to the National Radiology Data Registry (NRDR) Dose Index Registry (DIR) with the [employer] (ACR). RADIATION OPTIMIZATION: All CT scans at this facility use at least one of these dose optimization te chniques: automated exposure control; mA and/or kV adjustment per patient size (includes targeted exa ms where dose is matched to clinical indication); or iterative reconstruction.
--- NOTE | 2024-03-19 19:29 | DI.RAD_ITS ---
Exam(s) XR CHEST 1V IN DI DEPT EXAM: XR CHEST 1V IN DI DEPT CLINICAL HISTORY: Weakness. TECHNIQUE: 2D digital imaging was performed. COMPARISON: CR LEFT RIBS TO INCLUDE CXR from 09/23/2008 FINDINGS: Single AP portable view. Heart size is upper normal. The mediastinum is not widened. Right lung is clear. There is atelectasis-possible mild infiltrate in the inferior lingular segment of the left lung. No pleural effusions. Postsurgical widening of the left AC joint is noted. IMPRESSION: Atelectasis versus mild infiltrate in the inferior lingular segment of the left lung. No obvious pleural effusions. DATA REPOSITORY: RADIATION DOSE DELIVERED:
[2024-03-19] MEDS: Normal Saline - Diluent 50 ML VIAL IJ (19:31)
[2024-03-19] MEDS: Omnipaque 350 MG/ML 100 ML BTL 70 ML IJ (19:32)
[2024-03-19 19:47] LABS: Abs Immature Grans 0.02 10^3/uL (0.0-0.06); Absolute Basophil Count 0.02 10^3/uL (0.0-0.2); Absolute Eosinophil Count 0.05 10^3/uL (0.0-0.7); Absolute Lymphocyte Count 0.37 10^3/uL (1.2-3.4); Absolute Monocyte Count 0.57 10^3/uL (0.1-0.8); Absolute Neutrophil Count 7.02 10^3/uL (1.2-6.7); Basophils % 0.2 %; Eosinophils % 0.6 %; HCT 49.5 % (40.0-50.0); HGB 16.5 g/dL (13.5-17.5); Immature Grans % 0.2 %; Lymphocytes % 4.6 %; MCH 32.1 pg (27.0-33.0); MCHC 33.3 % (32.0-36.0); MCV 96 fL (80-95); MPV 10.4 fL (8.0-11.0); Monocytes % 7.1 %; Neutrophils % 87.3 %; Platelet Count 152 10^3/uL (130-400); RBC 5.14 10^6/uL (4.36-5.78); RDW 12.6 % (11.8-14.1); RDW-SD 45.6 fL; WBC 8.05 10^3/uL (4.4-10.8)
[2024-03-19 19:58] LABS: Prothrombin Time 10.5 sec (9.1-11.1)
[2024-03-19 20:11] LABS: ALT 52 U/L (16-63); AST 34 U/L (15-37); Albumin 3.8 g/dL (3.4-5.0); Alkaline Phosphatase 65 U/L (46-116); Anion Gap 6.8 mmol/L (3-11); BUN 16 mg/dL (7-18); Bilirubin, Total 0.58 mg/dL (0.2-1.0); CO2 31.2 mmol/L (21.0-32.0); CREATININE 1.5 mg/dL (0.70-1.30); Calcium 9.5 mg/dL (8.5-10.1); Chloride 106 mmol/L (98-107); Creatine Kinase 379 U/L (39-308); Estimated GFR 49.77 (mL/min/1.73m2); Glucose 113 mg/dL (74-106); Potassium 4.3 mmol/L (3.5-5.1); Sodium 144 mmol/L (136-145); TSH (W/Ref FT4) 1.91 uIU/mL (0.36-3.74); Total Protein 7.3 g/dL (6.4-8.2); Troponin I 9 ng/L (<or=76)
[2024-03-19 20:13] LABS: ETHANOL BLOOD < 3.0 mg/dL (<10)
--- NOTE | 2024-03-19 20:15 | DI.CT_ITS ---
Exam(s) CT CHEST WO EXAM: CT CHEST WO CLINICAL HISTORY: sob. TECHNIQUE: Multi planar reconstructions were performed. CONTRAST MATERIAL: None COMPARISON: CR XR CHEST 1V IN DI DEPT from 03/19/2024 FINDINGS: CHEST: LUNGS: There is a small area of infiltrate in the apical posterior segment of the left upper lobe adj acent to the most superior aspect of the left major fissure. There are no significant focal findings in the left lower lobe. However, there is some mild infiltrate evident in the lingular segment of t he left lung corresponding to what is seen on chest x-ray. No significant infiltrates in the opposit e-right lung. There is a tiny calcified granuloma in the mid right lung. There is also a 3 mm nonca lcified nodule in the lateral segment of the right middle lobe. There are no pleural effusions. No significant focal findings in the trachea and mainstem bronchus. The esophagus is mildly dilated thr oughout its length with fluid level. MEDIASTINUM: There is no obvious hilar nor mediastinal adenopathy. Visualized thyroid unremarkable.No obvious axillary adenopathy CARDIAC: Heart size upper normal. No pericardial effusion.Caliber of the thoracic aorta is within no rmal limits. VISUALIZED UPPER ABDOMEN:No adrenal masses. OSSEOUS: No significant osseous lesions. No fractures evident.. IMPRESSION: 1. There is an area of infiltrate in the lingular segment of the left lung corresponding to what is s een on chest x-ray of the same date. 2. There is a smaller area of infiltrate contiguous to the upper major fissure in the apical posterio r segment of the left upper lobe 3. There is a 3 millimeter noncalcified nodule in the right middle lobe. 4. There are no pleural effusions nor obvious intrathoracic adenopathy evident. Report called by myself to ER physician 03/19/2024 at 9:05 p.m. RADIATION DOSE DELIVERED: Total DLP DATA REPOSITORY: All CT scans at this facility are submitted to the National Radiology Data Registry (NRDR) Dose Index Registry (DIR) with the [employer] (ACR). RADIATION OPTIMIZATION: All CT scans at this facility use at least one of these dose optimization te chniques: automated exposure control; mA and/or kV adjustment per patient size (includes targeted exa ms where dose is matched to clinical indication); or iterative reconstruction.
[2024-03-19 20:28] LABS: COVID-19 PCR Negative (Negative); Influenza A PCR Negative (Negative); Influenza B PCR Negative (Negative); RSV PCR Negative (Negative)
[2024-03-19 20:31] LABS: Source NASOPHARYNX
--- NOTE | 2024-03-19 20:45 | RT.EKG_ITS ---
APPROVED REPORT Exam: Resting ECG Reason for Exam: Confusion do not need Patient Location: E HR:87 bpm ECG Measurements Heart Rate 87 AXIS DE 208 P 0 QRSd 95 QRS 41 QT 348 T 23 QTc 418 Conclusion Sinus rhythm...normal P axis, V-rate 60- 99 No STEMI
[2024-03-19] MEDS: Acetaminophen 500 MG TAB 1000 MG PO (20:46)
[2024-03-19] MEDS: Doxycycline Hyclate 100 MG CAP PO (20:46)
[2024-03-19] MEDS: cefTRIAXone 2 GM/50 ML BAG IVPB (20:46)
[2024-03-19 21:14] LABS: Troponin I 12 ng/L (<or=76)
[2024-03-19 21:43] LABS: Bilirubin Negative (Negative); Blood Negative (Negative); Clarity Clear (Clear); Glucose Negative (Negative); Ketones Negative (Negative); Leukocyte Esterase Negative (Negative); Nitrite Negative (Negative); Urobilinogen 0.2 mg/dL (Up to 0.2)
--- NOTE | 2024-03-19 22:44 | HPE_ITS ---
Date of service: 03/19/24 Time of Service: 22:44 Assessment and Plan Assessment and plan (1) Community acquired pneumonia: Status: Acute Assessment and plan: He is higher risk per PSI/PORT with mental status changes. Also acute hypoxia. I agree with admission for supportive care and IV ceftriaxone with azithromycin. (2) Acute hypoxemic respiratory failure: Status: Acute Assessment and plan: initially hypoxic secondary to pneumonia as above, has stabilized on room air already, continue to monitor. (3) DVT prophylaxis: Status: Acute Assessment and plan: not high risk as has been active until today, cancer not active. TEDs/SCDs (4) Prostate cancer: Status: Chronic Assessment and plan: history of low grade s/p external beam radiation, no active now. (5) Renal insufficiency, mild: Status: Acute Assessment and plan: mild, a/w acute illness. Up to 1.5 form 1.3, so doesn't quite meet definition of PATRICIA. CPK only borderline high, and this is unlikely related. He is taking po now. Hold ARB for now. Make sure not retaining in bladder with bladder scan (6) Acute encephalopathy: Status: Acute Assessment and plan: Teleneurology evaluation reviewed. It appears his exam was much more concerning for the teleneurologist, but no focal findings to suggest stroke. He has a benign neurologic exam for me and is completely coherent. He explains concern for listing to the left side is related to his bad hip rather than something neurologic, and this is not new. I do think he had a component of toxic metabolic encephalopathy related to acute infection and hypoxia, and he seems to have recovered. CT/CTA reassuring. I don't think recommendations of MRI, EEG, high dose thiamine make sense now. He does not appear to be intoxicated and denies daily drinking to me and in previous notes, though this is documented in neurology note. Will observe for signs of withdrawal. History of Present Illness History of Present Illness Chief Complaint: found down Narrative: 68 yo M with history of prostate cancer in remission and hypertension who was found down after an unwitnessed fall. The patient tells me he was going into the garage to take his dog out. He states he tripped and fell. He denies feeling dizzy or weak before the fall. He denies any focal weakness, though he states he falls a lot becuase he had his left hip replaced and it still doesn't move normally. He denies hitting his head or loosing conciousness. He admits he was having trouble getting up but again denies and focal weakness or confusion. He denies significant pain or injury from the fall. His found him and called for help, even though he states he didn't think he needed help. He states prior to the fall he had some runny nose, cough and pretty severe fatigue for 2-3 days. He hasn't felt short of breath, hadn't noted fever until he was here. He was eating and drinking normally before the fall. He denies any alcohol consumption or other substance or prescription drug use before the fall. Review of Systems Constitutional Constitutional: Reports fatigue, Reports fever(s), Reports frequent falls and Denies headache(s) Eyes Eyes: Denies loss of vision ENT Ears, Nose, Mouth, and Throat: Denies vertigo and Denies headache(s) Cardiovascular Cardiovascular: Denies chest pain, Denies syncope and Denies palpitations Genitourinary Genitourinary: Denies hematuria, Denies difficulty urinating and Reports urinary incontinence (dripping, since prostate cancer, not new) Neurologic Neurologic: Denies abnormal movements, Denies behavioral changes, Denies vertigo, Denies syncope, Reports frequent falls, Denies headache(s), Denies localized weakness, Denies loss of vision, Denies memory loss, Denies other visual disturbances, Denies convulsions and Denies sensory deficit Psychiatric Psychiatric: Denies behavioral changes, Denies memory loss and Denies mood swings Endocrine Endocrine: Reports fatigue and Denies palpitations PFSH All Active Problems Acute hypoxemic respiratory failure (Acute) Renal insufficiency, mild (Acute) DVT prophylaxis (Acute) Community acquired pneumonia (Acute) Acute encephalopathy (Acute) Chalazion left lower eyelid (Acute) Balanitis (Acute) Weakness of right hip (Acute) Encounter for screening colonoscopy (Acute) Dry eye syndrome (Acute 04/10/22) Bilateral. 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 tubular adenoma. repeat 5yrs History of left hip replacement (06/06/21) History of shoulder surgery (06/06/21) L rotator cuff punch biopsy (01/19/15) L shoulder Excision, Lesion (03/09/13) R arm excision non-healing ulcer-Squamous cell carcinoma Dr Man Colonoscopy - IV Sedation (03/09/04) 2013- tubular adenoma Family History Mother Emphysema lung Father Personal history of malignant neoplasm lung Sister Personal history of malignant neoplasm brain cancer Other Tubular adenoma of colon Social History Smoking/Tobacco Use Status: Never Smoking risk assessment performed?: Yes Alcohol Intake: current Alcohol Intake frequency: a few times a week Alcohol type: beer and wine Drug use: Never Substance use type: does not use Adopted: No Caregiver/Support person: No Household members: spouse Housing: house Number of Children: 5 number of grandchildren: 5 Communication Needs: None Education Level: college 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 Pets and animals: Yes (1) Pets and animals: dog(s) Sexually active: Yes Do you think of yourself as: straight/heterosexual Current gender identity: male What is your relationship status?: How often do you talk on the phone with friends or family?: three or more times per week How often do you get together with friends or relatives?: once per week How often do you attend latter-day or baptist services?: decline to answer Do you belong to any clubs or organized social groups?: no Panel score (0-1 are the most socially isolated patients): 2 What type of physical activity do you participate in: other Details: light weights/ treadmill when hip is good Duration: < 15 minutes/day Frequency: 1-2 times per week Mirela/Hinduism: Moravian Special mirela needs: No Seatbelt use: always Helmet use: Yes Helmet use: always Drive intox or ride w/intox bicycle taxi driver: No Working smoke detector in home: Yes Fire extinguisher in home: Yes Carbon monox detector in home: Yes Do you feel safe at home: Yes Do you feel safe in your relationship?: Yes Meds Allergies and Home Medications Allergies Allergy/AdvReac Type Severity Reaction Status Date / Time Penicillins Allergy Unknown unknown Verified 01/02/24 08:08 lisinopril AdvReac Mild cough Verified 01/02/24 08:08 Home Medications ?Medication ?Instructions ?Recorded ?Confirmed ?Type tadalafil 10 mg tablet (Cialis) 10 mg PO DAILY PRN sexual activity 03/09/18 01/02/24 Rx #10 tabs losartan 25 mg tablet 25 mg PO DAILY #90 tabs 04/24/23 01/02/24 Rx atorvastatin 40 mg tablet 40 mg PO QHS #90 tabs 01/02/24 01/02/24 Rx Exam Narrative Exam Narrative: GEN: Alert and oriented x 4, pleasant and cooperative, gives linear history. No acute distress at rest. HEENT: Head atraumatic. Conjunctiva clear, no icterus. PEERL, EOMI. no rhinorrhea. MMM, OP benign. Neck is supple with no masses or lymphadenopathy, trachea midline LUNGS: Normal effort, slight crackle mid left lung field. No wheeze. CV: RRR with no murmurs, gallops, or rubs. ABD: active bowel sounds, soft, nontender and nondistended. No masses. EXT: no cyanosis, clubbing, or edema MSK: No joint redness or swelling NEURO: CN 2-12 intact. Negative pronator drift. Normal FNF, HTS bilaterral. Normal strength and gross sensation of 4 extremities. Normal speech and coordination. He stands and takes steps steadily. He is slightly unsteady with rhomberg. Slight tremor in fingers more on right with hands extended. SKIN: Plethoric, no rashes. Minor closed/healing wounds on forearms and shins/knees. PSYCH: normal mood and affect Results Imaging Chest x-ray: report reviewed (Atelectasis versus mild infiltrate in the inferior lingular segment of the left lung. No obvious pleural effusions.) and image reviewed CT scan - chest: report reviewed EKG: report reviewed and image reviewed (NSR, nl ais, interavals. No ischemic ST-T abnormalities) I maging Studies: Chest CT: 1. There is an area of infiltrate in the lingular segment of the left lung corresponding to what is seen on chest x-ray of the same date. 2. There is a smaller area of infiltrate contiguous to the upper major fissure in the apical posterior segment of the left upper lobe 3. There is a 3 millimeter noncalcified nodule in the right middle lobe. 4. There are no pleural effusions nor obvious intrathoracic adenopathy evident. Head CTA: 1. There is calcified plaque at the left carotid bulb and proximal left internal carotid artery with approximately 20-30 percent stenosis at this level. Lesser amount of plaque and lesser amount of stenosis at same location on the opposite-right side. 2. Patent vertebral arteries. The right vertebral artery is dominant. No evidence of obvious stenosis of the vertebral arteries although the origin of the left vertebral artery is partially obscured by an overlying opacified vein in this region. There is no evidence of vertebral artery dissection. 3. Patent intracranial arteries. No significant intracranial stenosis nor thrombosis. No aneurysms. No evidence of vascular malformation in the brain. No ring enhancing lesions nor abnormal meningeal enhancement. 4. No evidence of intracranial hemorrhage nor obvious territorial infarct. Labs 03/19/24 19:35 03/19/24 19:35 Labs: Laboratory Results - last 24 hr 03/19/24 03/19/24 03/19/24 19:35 19:35 19:35 WBC 8.05 RBC 5.14 Hgb 16.5 Hct 49.5 MCV 96 H MCH 32.1 MCHC 33.3 RDW 12.6 Plt Count 152 MPV 10.4 Immature Gran % 0.2 Neutrophils % 87.3 Lymphocytes % 4.6 Monocytes % 7.1 Eosinophils % 0.6 Basophils % 0.2 Nucleated RBC % 0.0 Absolute Neutrophils 7.02 H Absolute Lymphocytes 0.37 L Absolute Monocytes 0.57 Absolute Eosinophils 0.05 Absolute Basophils 0.02 PT 10.5 INR 1.0 APTT 24.0 Sodium Cancelled 144 Potassium Cancelled 4.3 Chloride Cancelled Carbon Dioxide Anion Gap BUN Creatinine Est GFR (CKD-EPI 2020) Glucose Calcium Magnesium Total Bilirubin AST ALT Alkaline Phosphatase Creatine Kinase Troponin I Total Protein Albumin TSH Urine Color Urine Clarity Urine pH Ur Specific Marshall Urine Protein Urine Ketones Urine Blood Urine Nitrite Urine Bilirubin Urine Urobilinogen Ur Leukocyte Esterase Urine Glucose Ethyl Alcohol COVID-19 Source SARS-CoV-2 (PCR) Influenza Type A (PCR) Influenza Type B (PCR) RSV (PCR) 03/19/24 03/19/24 03/19/24 19:35 19:35 19:35 WBC RBC Hgb Hct MCV MCH MCHC RDW Plt Count MPV Immature Gran % Neutrophils % Lymphocytes % Monocytes % Eosinophils % Basophils % Nucleated RBC % Absolute Neutrophils Absolute Lymphocytes Absolute Monocytes Absolute Eosinophils Absolute Basophils PT INR APTT Sodium Potassium Chloride 106 Carbon Dioxide Cancelled 31.2 Anion Gap Cancelled 6.8 BUN Cancelled Creatinine Est GFR (CKD-EPI 2020) Glucose Calcium Magnesium Total Bilirubin AST ALT Alkaline Phosphatase Creatine Kinase Troponin I Total Protein Albumin TSH Urine Color Urine Clarity Urine pH Ur Specific Marshall Urine Protein Urine Ketones Urine Blood Urine Nitrite Urine Bilirubin Urine Urobilinogen Ur Leukocyte Esterase Urine Glucose Ethyl Alcohol COVID-19 Source SARS-CoV-2 (PCR) Influenza Type A (PCR) Influenza Type B (PCR) RSV (PCR) 03/19/24 03/19/24 03/19/24 19:35 19:35 19:35 WBC RBC Hgb Hct MCV MCH MCHC RDW Plt Count MPV Immature Gran % Neutrophils % Lymphocytes % Monocytes % Eosinophils % Basophils % Nucleated RBC % Absolute Neutrophils Absolute Lymphocytes Absolute Monocytes Absolute Eosinophils Absolute Basophils PT INR APTT Sodium Potassium Chloride Carbon Dioxide Anion Gap BUN 16 Creatinine Cancelled 1.5 H Est GFR (CKD-EPI 2020) Cancelled 49.77 Glucose Cancelled Calcium Magnesium Total Bilirubin AST ALT Alkaline Phosphatase Creatine Kinase Troponin I Total Protein Albumin TSH Urine Color Urine Clarity Urine pH Ur Specific Marshall Urine Protein Urine Ketones Urine Blood Urine Nitrite Urine Bilirubin Urine Urobilinogen Ur Leukocyte Esterase Urine Glucose Ethyl Alcohol COVID-19 Source SARS-CoV-2 (PCR) Influenza Type A (PCR) Influenza Type B (PCR) RSV (PCR) 03/19/24 03/19/24 03/19/24 19:35 19:35 19:35 WBC RBC Hgb Hct MCV MCH MCHC RDW Plt Count MPV Immature Gran % Neutrophils % Lymphocytes % Monocytes % Eosinophils % Basophils % Nucleated RBC % Absolute Neutrophils Absolute Lymphocytes Absolute Monocytes Absolute Eosinophils Absolute Basophils PT INR APTT Sodium Potassium Chloride Carbon Dioxide Anion Gap BUN Creatinine Est GFR (CKD-EPI 2020) Glucose 113 H Calcium Cancelled 9.5 Magnesium 2.0 Total Bilirubin Cancelled 0.58 AST Cancelled ALT Alkaline Phosphatase Creatine Kinase Troponin I Total Protein Albumin TSH Urine Color Urine Clarity Urine pH Ur Specific Marshall Urine Protein Urine Ketones Urine Blood Urine Nitrite Urine Bilirubin Urine Urobilinogen Ur Leukocyte Esterase Urine Glucose Ethyl Alcohol COVID-19 Source SARS-CoV-2 (PCR) Influenza Type A (PCR) Influenza Type B (PCR) RSV (PCR) 03/19/24 03/19/24 03/19/24 19:35 19:35 19:35 WBC RBC Hgb Hct MCV MCH MCHC RDW Plt Count MPV Immature Gran % Neutrophils % Lymphocytes % Monocytes % Eosinophils % Basophils % Nucleated RBC % Absolute Neutrophils Absolute Lymphocytes Absolute Monocytes Absolute Eosinophils Absolute Basophils PT INR APTT Sodium Potassium Chloride Carbon Dioxide Anion Gap BUN Creatinine Est GFR (CKD-EPI 2020) Glucose Calcium Magnesium Total Bilirubin AST 34 ALT Cancelled 52 Alkaline Phosphatase Cancelled 65 Creatine Kinase 379 H Troponin I 9 Total Protein Cancelled Albumin TSH Urine Color Urine Clarity Urine pH Ur Specific Marshall Urine Protein Urine Ketones Urine Blood Urine Nitrite Urine Bilirubin Urine Urobilinogen Ur Leukocyte Esterase Urine Glucose Ethyl Alcohol COVID-19 Source SARS-CoV-2 (PCR) Influenza Type A (PCR) Influenza Type B (PCR) RSV (PCR) 03/19/24 03/19/24 03/19/24 19:35 19:35 19:49 WBC RBC Hgb Hct MCV MCH MCHC RDW Plt Count MPV Immature Gran % Neutrophils % Lymphocytes % Monocytes % Eosinophils % Basophils % Nucleated RBC % Absolute Neutrophils Absolute Lymphocytes Absolute Monocytes Absolute Eosinophils Absolute Basophils PT INR APTT Sodium Potassium Chloride Carbon Dioxide Anion Gap BUN Creatinine Est GFR (CKD-EPI 2020) Glucose Calcium Magnesium Total Bilirubin AST ALT Alkaline Phosphatase Creatine Kinase Troponin I Total Protein 7.3 Albumin Cancelled 3.8 TSH 1.91 Urine Color Urine Clarity Urine pH Ur Specific Marshall Urine Protein Urine Ketones Urine Blood Urine Nitrite Urine Bilirubin Urine Urobilinogen Ur Leukocyte Esterase Urine Glucose Ethyl Alcohol < 3.0 COVID-19 Source NASOPHARYNX SARS-CoV-2 (PCR) Negative Influenza Type A (PCR) Negative Influenza Type B (PCR) Negative RSV (PCR) Negative 03/19/24 03/19/24 03/19/24 20:45 21:35 22:14 WBC RBC Hgb Hct MCV MCH MCHC RDW Plt Count MPV Immature Gran % Neutrophils % Lymphocytes % Monocytes % Eosinophils % Basophils % Nucleated RBC % Absolute Neutrophils Absolute Lymphocytes Absolute Monocytes Absolute Eosinophils Absolute Basophils PT INR APTT Sodium Potassium Chloride Carbon Dioxide Anion Gap BUN Creatinine Est GFR (CKD-EPI 2020) Glucose Calcium Magnesium Total Bilirubin AST ALT Alkaline Phosphatase Creatine Kinase Troponin I 12 Cancelled Total Protein Albumin TSH Urine Color Yellow Urine Clarity Clear Urine pH 6.0 Ur Specific Marshall 1.010 Urine Protein Negative Urine Ketones Negative Urine Blood Negative Urine Nitrite Negative Urine Bilirubin Negative Urine Urobilinogen 0.2 Ur Leukocyte Esterase Negative Urine Glucose Negative Ethyl Alcohol COVID-19 Source SARS-CoV-2 (PCR) Influenza Type A (PCR) Influenza Type B (PCR) RSV (PCR) Last Vital Signs Temp 38.7 C H 03/19/24 19:30 Pulse 91 H 03/19/24 19:45 Resp 18 03/19/24 19:47 BP 136/77 03/19/24 19:45 Pulse Ox 92 03/19/24 19:33 Time Spent Time spent with Patient: >75 minutes Time was spent: preparing to see the patient(eg.review tests), obtaining and/or reviewing separately otained hiistory, ordering medications,tests, procedures, referring, communicating with other health field care advocate, indepentently interpreting results, counseling the patient and care coordination
[2024-03-20 00:26] VITALS: BP 118/76; PULSE 74; RESP 16; TEMP 37; O2SAT 94
[2024-03-20] MEDS: Atorvastatin 40 MG TAB PO (01:04)
--- NOTE | 2024-03-20 02:55 | W.PC.ACHO ---
Registration Status: Primary Language: Preferred Language: ED Information & Data Chief Complaint CVA/TIA 03/19/24 19:35 Chief Complaint Abd Prob 03/19/24 19:27 Other Complaint RespSymp 03/19/24 19:30 Triage Note brought in by EMS, 03/19/24 19:30 unwitnessed fall in garage, noticed pt favoring left side, unknown head strike or LOC. mild moments of confussion, shaking. Has had upper resp. sx for several days. N/V on arrival . Denies CP, SOB. pt recalls the incident, states he remembers walking out to the garage, is normally unsteady on his feet. 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) History of shoulder surgery (06/06/21) punch biopsy (01/19/15) Excision, Lesion (03/09/13) Colonoscopy - IV Sedation (03/09/04) Most Recent Vital Signs Temperature 37.0 C 03/20/24 00:26 Temperature Source Oral 03/19/24 19:30 Pulse 74 03/20/24 00:26 Pulse Rhythm Regular 03/20/24 00:26 Pulse 79 03/19/24 23:50 Respiratory Rate 16 03/20/24 00:26 Respiratory Effort Normal 03/20/24 00:26 Respiratory Depth Normal 03/20/24 00:26 Respiratory Pattern Normal 03/20/24 00:26 Blood Pressure 118/76 03/20/24 00:26 Blood Pressure Mean 78 03/19/24 23:31 Blood Pressure Position Sitting 03/19/24 19:30 Pulse Oximetry 94 03/20/24 00:26 Oxygen Delivery Method Room Air 03/20/24 00:26 Oxygen Flow Rate 0 03/20/24 00:26 Pain Level 0 03/20/24 00:26 Allergies Penicillins Allergy (Unknown, Verified 01/02/24 08:08) unknown pt. states he has been told this since he was a kid, does not even know if its a real reaction. lisinopril Adverse Reaction (Mild, Verified 01/02/24 08:08) cough Cough Precautions Isolation PUI 03/19/24 19:35 Active Medications Generic Name Dose Route Start Last Admin Trade Name Freq PRN Reason Stop Dose Admin Atorvastatin Calcium 40 mg 03/20/24 00:30 03/20/24 01:04 Atorvastatin 40 Mg Tab PO 40 mg QPM MARTIN Administration Iohexol 70 ml 03/19/24 19:45 03/19/24 19:32 Omnipaque 350 Mg/Ml 100 Ml Btl IJ 04/18/24 23:59 70 ml DIRECTED MARTIN Administration Sodium Chloride 50 ml 03/19/24 19:45 03/19/24 19:31 Normal Saline - Diluent 50 Ml Vial IJ 50 ml .FOR DI USE MARTIN Administration IV IV Catheter Type [Right Saline Lock Antecubital] IV Catheter Type [Left Peripheral IV Antecubital] IV Catheter Gauge [Right 18 Antecubital] IV Catheter Gauge [Left 18 Antecubital] Diet Orders Category Date Time Status Regular/Normal [DIET] Nutrition 03/20/24 Breakfast Active Diagnostics 03/20/24 03/19/24 03/19/24 Range/Units 05:35 22:14 21:35 WBC (4.4-10.8) 10^3/uL RBC (4.36-5.78) 10^6/uL Hgb (13.5-17.5) g/dL Hct (40.0-50.0) % MCV (80-95) fL MCH (27.0-33.0) pg MCHC (32.0-36.0) % RDW (11.8-14.1) % Plt Count (130-400) 10^3/uL MPV (8.0-11.0) fL Immature Gran % % Neutrophils % % Lymphocytes % % Monocytes % % Eosinophils % % Basophils % % Nucleated RBC % (0.0-0.3) % Absolute Neutrophils (1.2-6.7) 10^3/uL Absolute Lymphocytes (1.2-3.4) 10^3/uL Absolute Monocytes (0.1-0.8) 10^3/uL Absolute Eosinophils (0.0-0.7) 10^3/uL Absolute Basophils (0.0-0.2) 10^3/uL PT (9.1-11.1) sec INR (0.9-1.1) APTT (20.6-30.2) sec Sodium Pending Potassium Pending Chloride Pending Carbon Dioxide Pending Anion Gap Pending BUN Pending Creatinine Pending Est GFR (CKD-EPI 2020) Pending Glucose Pending Calcium Pending Magnesium (1.8-2.4) mg/dL Total Bilirubin AST ALT Alkaline Phosphatase Creatine Kinase (39-308) U/L Troponin I Cancelled (<or=76) ng/L Total Protein Albumin TSH (0.36-3.74) uIU/mL Urine Color Yellow (Yellow) Urine Clarity Clear (Clear) Urine pH 6.0 (5-8) Ur Specific [place] 1.010 (1.005-1.025) Urine Protein Negative (Neg-Trace) mg/dL Urine Ketones Negative (Negative) mg/dL Urine Blood Negative (Negative) Urine Nitrite Negative (Negative) Urine Bilirubin Negative (Negative) Urine Urobilinogen 0.2 (Up to 0.2) mg/dL Ur Leukocyte Esterase Negative (Negative) Urine Glucose Negative (Negative) mg/dL Ethyl Alcohol (<10) mg/dL COVID-19 Source SARS-CoV-2 (PCR) (Negative) Influenza Type A (PCR) (Negative) Influenza Type B (PCR) (Negative) RSV (PCR) (Negative) 03/19/24 03/19/24 03/19/24 Range/Units 20:45 19:49 19:35 WBC (4.4-10.8) 10^3/uL RBC (4.36-5.78) 10^6/uL Hgb (13.5-17.5) g/dL Hct (40.0-50.0) % MCV (80-95) fL MCH (27.0-33.0) pg MCHC (32.0-36.0) % RDW (11.8-14.1) % Plt Count (130-400) 10^3/uL MPV (8.0-11.0) fL Immature Gran % % Neutrophils % % Lymphocytes % % Monocytes % % Eosinophils % % Basophils % % Nucleated RBC % (0.0-0.3) % Absolute Neutrophils (1.2-6.7) 10^3/uL Absolute Lymphocytes (1.2-3.4) 10^3/uL Absolute Monocytes (0.1-0.8) 10^3/uL Absolute Eosinophils (0.0-0.7) 10^3/uL Absolute Basophils (0.0-0.2) 10^3/uL PT (9.1-11.1) sec INR (0.9-1.1) APTT (20.6-30.2) sec Sodium Potassium Chloride Carbon Dioxide Anion Gap BUN Creatinine Est GFR (CKD-EPI 2020) Glucose Calcium Magnesium (1.8-2.4) mg/dL Total Bilirubin AST ALT Alkaline Phosphatase Creatine Kinase (39-308) U/L Troponin I 12 (<or=76) ng/L Total Protein Albumin 3.8 TSH 1.91 (0.36-3.74) uIU/mL Urine Color (Yellow) Urine Clarity (Clear) Urine pH (5-8) Ur Specific [place] (1.005-1.025) Urine Protein (Neg-Trace) mg/dL Urine Ketones (Negative) mg/dL Urine Blood (Negative) Urine Nitrite (Negative) Urine Bilirubin (Negative) Urine Urobilinogen (Up to 0.2) mg/dL Ur Leukocyte Esterase (Negative) Urine Glucose (Negative) mg/dL Ethyl Alcohol < 3.0 (<10) mg/dL COVID-19 Source NASOPHARYNX SARS-CoV-2 (PCR) Negative (Negative) Influenza Type A (PCR) Negative (Negative) Influenza Type B (PCR) Negative (Negative) RSV (PCR) Negative (Negative) 03/19/24 03/19/24 03/19/24 Range/Units 19:35 19:35 19:35 WBC (4.4-10.8) 10^3/uL RBC (4.36-5.78) 10^6/uL Hgb (13.5-17.5) g/dL Hct (40.0-50.0) % MCV (80-95) fL MCH (27.0-33.0) pg MCHC (32.0-36.0) % RDW (11.8-14.1) % Plt Count (130-400) 10^3/uL MPV (8.0-11.0) fL Immature Gran % % Neutrophils % % Lymphocytes % % Monocytes % % Eosinophils % % Basophils % % Nucleated RBC % (0.0-0.3) % Absolute Neutrophils (1.2-6.7) 10^3/uL Absolute Lymphocytes (1.2-3.4) 10^3/uL Absolute Monocytes (0.1-0.8) 10^3/uL Absolute Eosinophils (0.0-0.7) 10^3/uL Absolute Basophils (0.0-0.2) 10^3/uL PT (9.1-11.1) sec INR (0.9-1.1) APTT (20.6-30.2) sec Sodium Potassium Chloride Carbon Dioxide Anion Gap BUN Creatinine Est GFR (CKD-EPI 2020) Glucose Calcium Magnesium (1.8-2.4) mg/dL Total Bilirubin AST ALT 52 Alkaline Phosphatase 65 Cancelled Creatine Kinase 379 H (39-308) U/L Troponin I 9 (<or=76) ng/L Total Protein 7.3 Cancelled Albumin Cancelled TSH (0.36-3.74) uIU/mL Urine Color (Yellow) Urine Clarity (Clear) Urine pH (5-8) Ur Specific [place] (1.005-1.025) Urine Protein (Neg-Trace) mg/dL Urine Ketones (Negative) mg/dL Urine Blood (Negative) Urine Nitrite (Negative) Urine Bilirubin (Negative) Urine Urobilinogen (Up to 0.2) mg/dL Ur Leukocyte Esterase (Negative) Urine Glucose (Negative) mg/dL Ethyl Alcohol (<10) mg/dL COVID-19 Source SARS-CoV-2 (PCR) (Negative) Influenza Type A (PCR) (Negative) Influenza Type B (PCR) (Negative) RSV (PCR) (Negative) 03/19/24 03/19/24 03/19/24 Range/Units 19:35 19:35 19:35 WBC (4.4-10.8) 10^3/uL RBC (4.36-5.78) 10^6/uL Hgb (13.5-17.5) g/dL Hct (40.0-50.0) % MCV (80-95) fL MCH (27.0-33.0) pg MCHC (32.0-36.0) % RDW (11.8-14.1) % Plt Count (130-400) 10^3/uL MPV (8.0-11.0) fL Immature Gran % % Neutrophils % % Lymphocytes % % Monocytes % % Eosinophils % % Basophils % % Nucleated RBC % (0.0-0.3) % Absolute Neutrophils (1.2-6.7) 10^3/uL Absolute Lymphocytes (1.2-3.4) 10^3/uL Absolute Monocytes (0.1-0.8) 10^3/uL Absolute Eosinophils (0.0-0.7) 10^3/uL Absolute Basophils (0.0-0.2) 10^3/uL PT (9.1-11.1) sec INR (0.9-1.1) APTT (20.6-30.2) sec Sodium Potassium Chloride Carbon Dioxide Anion Gap BUN Creatinine Est GFR (CKD-EPI 2020) Glucose Calcium 9.5 Magnesium 2.0 (1.8-2.4) mg/dL Total Bilirubin 0.58 Cancelled AST 34 Cancelled ALT Cancelled Alkaline Phosphatase Creatine Kinase (39-308) U/L Troponin I (<or=76) ng/L Total Protein Albumin TSH (0.36-3.74) uIU/mL Urine Color (Yellow) Urine Clarity (Clear) Urine pH (5-8) Ur Specific [place] (1.005-1.025) Urine Protein (Neg-Trace) mg/dL Urine Ketones (Negative) mg/dL Urine Blood (Negative) Urine Nitrite (Negative) Urine Bilirubin (Negative) Urine Urobilinogen (Up to 0.2) mg/dL Ur Leukocyte Esterase (Negative) Urine Glucose (Negative) mg/dL Ethyl Alcohol (<10) mg/dL COVID-19 Source SARS-CoV-2 (PCR) (Negative) Influenza Type A (PCR) (Negative) Influenza Type B (PCR) (Negative) RSV (PCR) (Negative) 03/19/24 03/19/24 03/19/24 Range/Units 19:35 19:35 19:35 WBC (4.4-10.8) 10^3/uL RBC (4.36-5.78) 10^6/uL Hgb (13.5-17.5) g/dL Hct (40.0-50.0) % MCV (80-95) fL MCH (27.0-33.0) pg MCHC (32.0-36.0) % RDW (11.8-14.1) % Plt Count (130-400) 10^3/uL MPV (8.0-11.0) fL Immature Gran % % Neutrophils % % Lymphocytes % % Monocytes % % Eosinophils % % Basophils % % Nucleated RBC % (0.0-0.3) % Absolute Neutrophils (1.2-6.7) 10^3/uL Absolute Lymphocytes (1.2-3.4) 10^3/uL Absolute Monocytes (0.1-0.8) 10^3/uL Absolute Eosinophils (0.0-0.7) 10^3/uL Absolute Basophils (0.0-0.2) 10^3/uL PT (9.1-11.1) sec INR (0.9-1.1) APTT (20.6-30.2) sec Sodium Potassium Chloride Carbon Dioxide Anion Gap BUN Creatinine 1.5 H Est GFR (CKD-EPI 2020) 49.77 Cancelled Glucose 113 H Cancelled Calcium Cancelled Magnesium (1.8-2.4) mg/dL Total Bilirubin AST ALT Alkaline Phosphatase Creatine Kinase (39-308) U/L Troponin I (<or=76) ng/L Total Protein Albumin TSH (0.36-3.74) uIU/mL Urine Color (Yellow) Urine Clarity (Clear) Urine pH (5-8) Ur Specific [place] (1.005-1.025) Urine Protein (Neg-Trace) mg/dL Urine Ketones (Negative) mg/dL Urine Blood (Negative) Urine Nitrite (Negative) Urine Bilirubin (Negative) Urine Urobilinogen (Up to 0.2) mg/dL Ur Leukocyte Esterase (Negative) Urine Glucose (Negative) mg/dL Ethyl Alcohol (<10) mg/dL COVID-19 Source SARS-CoV-2 (PCR) (Negative) Influenza Type A (PCR) (Negative) Influenza Type B (PCR) (Negative) RSV (PCR) (Negative) 03/19/24 03/19/24 03/19/24 Range/Units 19:35 19:35 19:35 WBC (4.4-10.8) 10^3/uL RBC (4.36-5.78) 10^6/uL Hgb (13.5-17.5) g/dL Hct (40.0-50.0) % MCV (80-95) fL MCH (27.0-33.0) pg MCHC (32.0-36.0) % RDW (11.8-14.1) % Plt Count (130-400) 10^3/uL MPV (8.0-11.0) fL Immature Gran % % Neutrophils % % Lymphocytes % % Monocytes % % Eosinophils % % Basophils % % Nucleated RBC % (0.0-0.3) % Absolute Neutrophils (1.2-6.7) 10^3/uL Absolute Lymphocytes (1.2-3.4) 10^3/uL Absolute Monocytes (0.1-0.8) 10^3/uL Absolute Eosinophils (0.0-0.7) 10^3/uL Absolute Basophils (0.0-0.2) 10^3/uL PT (9.1-11.1) sec INR (0.9-1.1) APTT (20.6-30.2) sec Sodium Potassium Chloride Carbon Dioxide 31.2 Anion Gap 6.8 Cancelled BUN 16 Cancelled Creatinine Cancelled Est GFR (CKD-EPI 2020) Glucose Calcium Magnesium (1.8-2.4) mg/dL Total Bilirubin AST ALT Alkaline Phosphatase Creatine Kinase (39-308) U/L Troponin I (<or=76) ng/L Total Protein Albumin TSH (0.36-3.74) uIU/mL Urine Color (Yellow) Urine Clarity (Clear) Urine pH (5-8) Ur Specific [place] (1.005-1.025) Urine Protein (Neg-Trace) mg/dL Urine Ketones (Negative) mg/dL Urine Blood (Negative) Urine Nitrite (Negative) Urine Bilirubin (Negative) Urine Urobilinogen (Up to 0.2) mg/dL Ur Leukocyte Esterase (Negative) Urine Glucose (Negative) mg/dL Ethyl Alcohol (<10) mg/dL COVID-19 Source SARS-CoV-2 (PCR) (Negative) Influenza Type A (PCR) (Negative) Influenza Type B (PCR) (Negative) RSV (PCR) (Negative) 03/19/24 03/19/24 03/19/24 Range/Units 19:35 19:35 19:35 WBC (4.4-10.8) 10^3/uL RBC (4.36-5.78) 10^6/uL Hgb (13.5-17.5) g/dL Hct (40.0-50.0) % MCV (80-95) fL MCH (27.0-33.0) pg MCHC (32.0-36.0) % RDW (11.8-14.1) % Plt Count (130-400) 10^3/uL MPV (8.0-11.0) fL Immature Gran % % Neutrophils % % Lymphocytes % % Monocytes % % Eosinophils % % Basophils % % Nucleated RBC % (0.0-0.3) % Absolute Neutrophils (1.2-6.7) 10^3/uL Absolute Lymphocytes (1.2-3.4) 10^3/uL Absolute Monocytes (0.1-0.8) 10^3/uL Absolute Eosinophils (0.0-0.7) 10^3/uL Absolute Basophils (0.0-0.2) 10^3/uL PT (9.1-11.1) sec INR (0.9-1.1) APTT (20.6-30.2) sec Sodium 144 Potassium 4.3 Cancelled Chloride 106 Cancelled Carbon Dioxide Cancelled Anion Gap BUN Creatinine Est GFR (CKD-EPI 2020) Glucose Calcium Magnesium (1.8-2.4) mg/dL Total Bilirubin AST ALT Alkaline Phosphatase Creatine Kinase (39-308) U/L Troponin I (<or=76) ng/L Total Protein Albumin TSH (0.36-3.74) uIU/mL Urine Color (Yellow) Urine Clarity (Clear) Urine pH (5-8) Ur Specific [place] (1.005-1.025) Urine Protein (Neg-Trace) mg/dL Urine Ketones (Negative) mg/dL Urine Blood (Negative) Urine Nitrite (Negative) Urine Bilirubin (Negative) Urine Urobilinogen (Up to 0.2) mg/dL Ur Leukocyte Esterase (Negative) Urine Glucose (Negative) mg/dL Ethyl Alcohol (<10) mg/dL COVID-19 Source SARS-CoV-2 (PCR) (Negative) Influenza Type A (PCR) (Negative) Influenza Type B (PCR) (Negative) RSV (PCR) (Negative) 03/19/24 Range/Units 19:35 WBC 8.05 (4.4-10.8) 10^3/uL RBC 5.14 (4.36-5.78) 10^6/uL Hgb 16.5 (13.5-17.5) g/dL Hct 49.5 (40.0-50.0) % MCV 96 H (80-95) fL MCH 32.1 (27.0-33.0) pg MCHC 33.3 (32.0-36.0) % RDW 12.6 (11.8-14.1) % Plt Count 152 (130-400) 10^3/uL MPV 10.4 (8.0-11.0) fL Immature Gran % 0.2 % Neutrophils % 87.3 % Lymphocytes % 4.6 % Monocytes % 7.1 % Eosinophils % 0.6 % Basophils % 0.2 % Nucleated RBC % 0.0 (0.0-0.3) % Absolute Neutrophils 7.02 H (1.2-6.7) 10^3/uL Absolute Lymphocytes 0.37 L (1.2-3.4) 10^3/uL Absolute Monocytes 0.57 (0.1-0.8) 10^3/uL Absolute Eosinophils 0.05 (0.0-0.7) 10^3/uL Absolute Basophils 0.02 (0.0-0.2) 10^3/uL PT 10.5 (9.1-11.1) sec INR 1.0 (0.9-1.1) APTT 24.0 (20.6-30.2) sec Sodium Cancelled Potassium Chloride Carbon Dioxide Anion Gap BUN Creatinine Est GFR (CKD-EPI 2020) Glucose Calcium Magnesium (1.8-2.4) mg/dL Total Bilirubin AST ALT Alkaline Phosphatase Creatine Kinase (39-308) U/L Troponin I (<or=76) ng/L Total Protein Albumin TSH (0.36-3.74) uIU/mL Urine Color (Yellow) Urine Clarity (Clear) Urine pH (5-8) Ur Specific [place] (1.005-1.025) Urine Protein (Neg-Trace) mg/dL Urine Ketones (Negative) mg/dL Urine Blood (Negative) Urine Nitrite (Negative) Urine Bilirubin (Negative) Urine Urobilinogen (Up to 0.2) mg/dL Ur Leukocyte Esterase (Negative) Urine Glucose (Negative) mg/dL Ethyl Alcohol (<10) mg/dL COVID-19 Source SARS-CoV-2 (PCR) (Negative) Influenza Type A (PCR) (Negative) Influenza Type B (PCR) (Negative) RSV (PCR) (Negative) 03/19/24 20:45 Blood Culture - Pending Blood 03/19/24 20:40 Blood Culture - Pending Blood Intake and Output - 24 Hour Total 03/19/24 19:12 thru 03/20/24 00:26 Intake Total 60 Balance 60 Weight 79.379 kg Intake: IV 60 Other: Urine Appearance Clear Falls Risk Assessment History of Falls Admit Due to Fall 03/20/24 00:26 Contributing Factors No Factors 03/20/24 00:26 Ambulatory Aids Independent 03/20/24 00:26 Tubes/Lines None 03/20/24 00:26 Gait Evaluation No gait disturbance 03/20/24 00:26 Cognition No cognitive impairment 03/20/24 00:26 Fall Total Score 03/20/24 00:26 Level of Risk Moderate Risk 03/20/24 00:26 Problems (Last Reviewed 03/20/24 @ 00:31 by Coy Payton) Acute hypoxemic respiratory failure (Acute) Renal insufficiency, mild (Acute) DVT prophylaxis (Acute) Community acquired pneumonia (Acute) Acute encephalopathy (Acute) Prostate cancer (Chronic) v v v v v v v v v Sending and/or Receiving Nurses: Please use comment section below to note any information pertinent to the patient hand-off not included above. Information / Comments: Report received from: Uzma @ [id number] 03/19/2024 brought in by EMS after a fall in patient garage and found him on on the ground. unknown if pt had LOC. AAO x 4. Denies pain. ambulatory. patient is voiding. it was reported that patient was having difficulty speaking. and was confused but that has cleared. Head CT negative for any bleed. received PO tylenol for fever, PO doxy and IV Rocephin in the ER.
[2024-03-20 03:31] VITALS: BP 109/74; PULSE 75; RESP 18; TEMP 37.2; O2SAT 96
[2024-03-20 07:39] LABS: Anion Gap 5.9 mmol/L (3-11); BUN 14 mg/dL (7-18); CO2 30.1 mmol/L (21.0-32.0); CREATININE 1.2 mg/dL (0.70-1.30); Calcium 9.2 mg/dL (8.5-10.1); Chloride 109 mmol/L (98-107); Estimated GFR 65.06 (mL/min/1.73m2); Glucose 93 mg/dL (74-106); Potassium 3.7 mmol/L (3.5-5.1); Sodium 145 mmol/L (136-145)
[2024-03-20 07:56] VITALS: BP 143/79; PULSE 72; RESP 16; TEMP 37.8; O2SAT 95
[2024-03-20] MEDS: Doxycycline Hyclate 100 MG CAP PO (08:23)
[2024-03-20 11:12] VITALS: BP 124/57; PULSE 73; RESP 16; TEMP 37.3; O2SAT 92
--- NOTE | 2024-03-20 13:20 | W.PM.PROGNOT ---
Date of Service Date of service: 03/20/24 Time of Service: 13:20 Assessment and Plan Assessment and plan (1) Community acquired pneumonia: Status: Acute Assessment and plan: continue ceftriaxone with azithromycin day 2/5. blood cultures pending weaned off oxygen (2) Acute hypoxemic respiratory failure: Status: Acute Assessment and plan: initially hypoxic secondary to pneumonia as above, has stabilized on room air already, continue to monitor. (3) DVT prophylaxis: Status: Acute Assessment and plan: not high risk as has been active until today, cancer not active. TEDs/SCDs (4) Prostate cancer: Status: Chronic Assessment and plan: history of low grade s/p external beam radiation, no active now. (5) Renal insufficiency, mild: Status: Acute Assessment and plan: mild, a/w acute illness. Up to 1.5 form 1.3, so doesn't quite meet definition of PATRICIA. CPK only borderline high, and this is unlikely related. He is taking po now. Hold ARB for now. Make sure not retaining in bladder with bladder scan (6) Acute encephalopathy: Status: Acute Assessment and plan: Teleneurology evaluation reviewed. It appears his exam was much more concerning for the teleneurologist, but no focal findings to suggest stroke. He has a benign neurologic exam for me and is completely coherent. He explains concern for listing to the left side is related to his bad hip rather than something neurologic, and this is not new. I do think he had a component of toxic metabolic encephalopathy related to acute infection and hypoxia, and he seems to have recovered. CT/CTA reassuring. I don't think recommendations of MRI, EEG, high dose thiamine make sense now. He does not appear to be intoxicated and denies daily drinking to me and in previous notes, though this is documented in neurology note. Will observe for signs of withdrawal. (7) Alcohol use disorder: Status: Acute Assessment and plan: monitor CIWA, has not been scoring has no history of withdrawal has not had alcohol in 3 days secondary to illness. discussed with DR Son Subjective Subjective Patient reports: no new complaints, feels better, tolerating liquids well, tolerating a regular diet and afebrile; denies shortness of breath Interval history since last seen: weaned off oxygen Exam Const General: cooperative, healthy appearing, comfortable, no acute distress, well developed and well groomed Nutritional Appearance: average body habitus and well nourished Orientation: alert, awake and oriented x3 HENMT Head: normal to inspection, normocephalic and atraumatic Resp Effort & Inspection: normal respiratory effort, able to speak in complete sentences and no respiratory distress Neuro General: patient alert, patient awake and patient oriented x3 Cognition: normal cognition Speech: speech normal Psych Appearance: grossly normal and well kempt Mental Status: mental status grossly normal Speech and Movement: speech and movement normal Objective Last Vital Signs Temp 37.3 C 03/20/24 11:12 Pulse 73 03/20/24 11:12 Resp 16 03/20/24 11:12 BP 124/57 L 03/20/24 11:12 Pulse Ox 92 03/20/24 11:12 Laboratory Results - last 24 hr 03/19/24 03/19/24 03/19/24 19:35 19:35 19:35 WBC 8.05 RBC 5.14 Hgb 16.5 Hct 49.5 MCV 96 H MCH 32.1 MCHC 33.3 RDW 12.6 Plt Count 152 MPV 10.4 Immature Gran % 0.2 Neutrophils % 87.3 Lymphocytes % 4.6 Monocytes % 7.1 Eosinophils % 0.6 Basophils % 0.2 Nucleated RBC % 0.0 Absolute Neutrophils 7.02 H Absolute Lymphocytes 0.37 L Absolute Monocytes 0.57 Absolute Eosinophils 0.05 Absolute Basophils 0.02 PT 10.5 INR 1.0 APTT 24.0 Sodium Cancelled 144 Potassium Cancelled 4.3 Chloride Cancelled Carbon Dioxide Anion Gap BUN Creatinine Est GFR (CKD-EPI 2020) Glucose Calcium Magnesium Total Bilirubin AST ALT Alkaline Phosphatase Creatine Kinase Troponin I Total Protein Albumin TSH Urine Color Urine Clarity Urine pH Ur Specific [place] Urine Protein Urine Ketones Urine Blood Urine Nitrite Urine Bilirubin Urine Urobilinogen Ur Leukocyte Esterase Urine Glucose Ethyl Alcohol COVID-19 Source SARS-CoV-2 (PCR) Influenza Type A (PCR) Influenza Type B (PCR) RSV (PCR) 03/19/24 03/19/24 03/19/24 19:35 19:35 19:35 WBC RBC Hgb Hct MCV MCH MCHC RDW Plt Count MPV Immature Gran % Neutrophils % Lymphocytes % Monocytes % Eosinophils % Basophils % Nucleated RBC % Absolute Neutrophils Absolute Lymphocytes Absolute Monocytes Absolute Eosinophils Absolute Basophils PT INR APTT Sodium Potassium Chloride 106 Carbon Dioxide Cancelled 31.2 Anion Gap Cancelled 6.8 BUN Cancelled Creatinine Est GFR (CKD-EPI 2020) Glucose Calcium Magnesium Total Bilirubin AST ALT Alkaline Phosphatase Creatine Kinase Troponin I Total Protein Albumin TSH Urine Color Urine Clarity Urine pH Ur Specific [place] Urine Protein Urine Ketones Urine Blood Urine Nitrite Urine Bilirubin Urine Urobilinogen Ur Leukocyte Esterase Urine Glucose Ethyl Alcohol COVID-19 Source SARS-CoV-2 (PCR) Influenza Type A (PCR) Influenza Type B (PCR) RSV (PCR) 03/19/24 03/19/24 03/19/24 19:35 19:35 19:35 WBC RBC Hgb Hct MCV MCH MCHC RDW Plt Count MPV Immature Gran % Neutrophils % Lymphocytes % Monocytes % Eosinophils % Basophils % Nucleated RBC % Absolute Neutrophils Absolute Lymphocytes Absolute Monocytes Absolute Eosinophils Absolute Basophils PT INR APTT Sodium Potassium Chloride Carbon Dioxide Anion Gap BUN 16 Creatinine Cancelled 1.5 H Est GFR (CKD-EPI 2020) Cancelled 49.77 Glucose Cancelled Calcium Magnesium Total Bilirubin AST ALT Alkaline Phosphatase Creatine Kinase Troponin I Total Protein Albumin TSH Urine Color Urine Clarity Urine pH Ur Specific [place] Urine Protein Urine Ketones Urine Blood Urine Nitrite Urine Bilirubin Urine Urobilinogen Ur Leukocyte Esterase Urine Glucose Ethyl Alcohol COVID-19 Source SARS-CoV-2 (PCR) Influenza Type A (PCR) Influenza Type B (PCR) RSV (PCR) 03/19/24 03/19/24 03/19/24 19:35 19:35 19:35 WBC RBC Hgb Hct MCV MCH MCHC RDW Plt Count MPV Immature Gran % Neutrophils % Lymphocytes % Monocytes % Eosinophils % Basophils % Nucleated RBC % Absolute Neutrophils Absolute Lymphocytes Absolute Monocytes Absolute Eosinophils Absolute Basophils PT INR APTT Sodium Potassium Chloride Carbon Dioxide Anion Gap BUN Creatinine Est GFR (CKD-EPI 2020) Glucose 113 H Calcium Cancelled 9.5 Magnesium 2.0 Total Bilirubin Cancelled 0.58 AST Cancelled ALT Alkaline Phosphatase Creatine Kinase Troponin I Total Protein Albumin TSH Urine Color Urine Clarity Urine pH Ur Specific [place] Urine Protein Urine Ketones Urine Blood Urine Nitrite Urine Bilirubin Urine Urobilinogen Ur Leukocyte Esterase Urine Glucose Ethyl Alcohol COVID-19 Source SARS-CoV-2 (PCR) Influenza Type A (PCR) Influenza Type B (PCR) RSV (PCR) 03/19/24 03/19/24 03/19/24 19:35 19:35 19:35 WBC RBC Hgb Hct MCV MCH MCHC RDW Plt Count MPV Immature Gran % Neutrophils % Lymphocytes % Monocytes % Eosinophils % Basophils % Nucleated RBC % Absolute Neutrophils Absolute Lymphocytes Absolute Monocytes Absolute Eosinophils Absolute Basophils PT INR APTT Sodium Potassium Chloride Carbon Dioxide Anion Gap BUN Creatinine Est GFR (CKD-EPI 2020) Glucose Calcium Magnesium Total Bilirubin AST 34 ALT Cancelled 52 Alkaline Phosphatase Cancelled 65 Creatine Kinase 379 H Troponin I 9 Total Protein Cancelled Albumin TSH Urine Color Urine Clarity Urine pH Ur Specific [place] Urine Protein Urine Ketones Urine Blood Urine Nitrite Urine Bilirubin Urine Urobilinogen Ur Leukocyte Esterase Urine Glucose Ethyl Alcohol COVID-19 Source SARS-CoV-2 (PCR) Influenza Type A (PCR) Influenza Type B (PCR) RSV (PCR) 03/19/24 03/19/24 03/19/24 19:35 19:35 19:49 WBC RBC Hgb Hct MCV MCH MCHC RDW Plt Count MPV Immature Gran % Neutrophils % Lymphocytes % Monocytes % Eosinophils % Basophils % Nucleated RBC % Absolute Neutrophils Absolute Lymphocytes Absolute Monocytes Absolute Eosinophils Absolute Basophils PT INR APTT Sodium Potassium Chloride Carbon Dioxide Anion Gap BUN Creatinine Est GFR (CKD-EPI 2020) Glucose Calcium Magnesium Total Bilirubin AST ALT Alkaline Phosphatase Creatine Kinase Troponin I Total Protein 7.3 Albumin Cancelled 3.8 TSH 1.91 Urine Color Urine Clarity Urine pH Ur Specific [place] Urine Protein Urine Ketones Urine Blood Urine Nitrite Urine Bilirubin Urine Urobilinogen Ur Leukocyte Esterase Urine Glucose Ethyl Alcohol < 3.0 COVID-19 Source NASOPHARYNX SARS-CoV-2 (PCR) Negative Influenza Type A (PCR) Negative Influenza Type B (PCR) Negative RSV (PCR) Negative 03/19/24 03/19/24 03/19/24 20:45 21:35 22:14 WBC RBC Hgb Hct MCV MCH MCHC RDW Plt Count MPV Immature Gran % Neutrophils % Lymphocytes % Monocytes % Eosinophils % Basophils % Nucleated RBC % Absolute Neutrophils Absolute Lymphocytes Absolute Monocytes Absolute Eosinophils Absolute Basophils PT INR APTT Sodium Potassium Chloride Carbon Dioxide Anion Gap BUN Creatinine Est GFR (CKD-EPI 2020) Glucose Calcium Magnesium Total Bilirubin AST ALT Alkaline Phosphatase Creatine Kinase Troponin I 12 Cancelled Total Protein Albumin TSH Urine Color Yellow Urine Clarity Clear Urine pH 6.0 Ur Specific [place] 1.010 Urine Protein Negative Urine Ketones Negative Urine Blood Negative Urine Nitrite Negative Urine Bilirubin Negative Urine Urobilinogen 0.2 Ur Leukocyte Esterase Negative Urine Glucose Negative Ethyl Alcohol COVID-19 Source SARS-CoV-2 (PCR) Influenza Type A (PCR) Influenza Type B (PCR) RSV (PCR) 03/20/24 06:54 WBC RBC Hgb Hct MCV MCH MCHC RDW Plt Count MPV Immature Gran % Neutrophils % Lymphocytes % Monocytes % Eosinophils % Basophils % Nucleated RBC % Absolute Neutrophils Absolute Lymphocytes Absolute Monocytes Absolute Eosinophils Absolute Basophils PT INR APTT Sodium 145 Potassium 3.7 Chloride 109 H Carbon Dioxide 30.1 Anion Gap 5.9 BUN 14 Creatinine 1.2 Est GFR (CKD-EPI 2020) 65.06 Glucose 93 Calcium 9.2 Magnesium Total Bilirubin AST ALT Alkaline Phosphatase Creatine Kinase Troponin I Total Protein Albumin TSH Urine Color Urine Clarity Urine pH Ur Specific [place] Urine Protein Urine Ketones Urine Blood Urine Nitrite Urine Bilirubin Urine Urobilinogen Ur Leukocyte Esterase Urine Glucose Ethyl Alcohol COVID-19 Source SARS-CoV-2 (PCR) Influenza Type A (PCR) Influenza Type B (PCR) RSV (PCR)
--- NOTE | 2024-03-20 14:29 | DSE_ITS ---
Date of service: 03/20/24 Time of Service: 14:29 DS: Diagnosis Discharge Diagnosis (1) Community acquired pneumonia: Status: Acute (2) Acute hypoxemic respiratory failure: Status: Acute (3) DVT prophylaxis: Status: Acute (4) Prostate cancer: Status: Chronic (5) Renal insufficiency, mild: Status: Acute (6) Acute encephalopathy: Status: Acute (7) Alcohol use disorder: Status: Acute Discharge Plan Disposition Patient Disposition: Home Condition: Stable Discharge Details Reason For Visit: pneumonia, hypoxia Admit Date/Time: 03/19/24 22:38 Admit Provider: Coy Payton Attending Provider: Coy Payton Primary Care Provider: Joe Arreola [facility] Course Hospital Course: This is a 68-year-old male patient past medical history significant for mild renal insufficiency alcohol use disorder dyslipidemia hypertension who presented to the emergency department for evaluation following a fall at home this fall was witnessed. Apparently there was reported some confusion following the fall. He had been experiencing symptoms of a respiratory illness for several days which she reports his has had similar symptoms as well. EMS was called and he was brought in to the emergency department via EMS. Given the confusion he underwent a CT angiogram of the head and neck which were negative. Teleneuro was consulted and this was not felt to be consistent with a stroke presentation. Also on evaluation found to have a pneumonia for which she was started on ceftriaxone and doxycycline. It was thought that his confusion was most likely infectious encephalopathy from this pneumonia. He was admitted under hospitalist services for further management. Overnight he had no oxygen requirements hemodynamically remained stable. Neurologic he was nonfocal and at his baseline. He is awake alert oriented with no confusion noted. He does not have recollection of last evening's events. I wonder if he experienced concussion which explains his symptoms of confusion post fall. He has received 2 doses of ceftriaxone. He has had no fever no oxygen requirements and appears at his baseline. He is requesting discharge to home. He will be discharged home on cefpodoxime and doxycycline to complete a 5-day course of antibiotics. He was advised to return sooner for new or worsening symptoms. Discharge discussed with Dr. Son Home Meds and New Rx's Prescriptions: New doxycycline hyclate 100 mg Capsule 100 mg PO BID Qty: 8 0RF cefpodoxime 200 mg tablet 200 mg PO BID Qty: 10 0RF Rx Instructions: must administer with a meal/food Continued tadalafil [Cialis] 10 mg tablet 10 mg PO DAILY PRN (Reason: sexual activity) Qty: 10 6RF Rx Instructions: administer approximately 30min before sexual activity; do not use more than 1 dose per 24hrs atorvastatin 40 mg tablet 40 mg PO QHS Qty: 90 3RF losartan 25 mg tablet 25 mg PO DAILY Qty: 90 3RF Discharge Instructions Instructions: Pneumonia, Adult (DC) Additional Instructions: take antibiotics as prescribed even if you feel better drink at least 6-8 glasses of water daily to stay well hydrated. Referrals: Joe Arreola DO [Primary Care Provider] - Activity:: Activity as Tolerated Equipment/Supplies:: No Equipment Needed Diet:: As Tolerated Discharge Orders Discharge Orders: Discharge Order (Routine); Ordered 03/20/24 Ordered By: Gabrielle Hall DS: Summary Time Spent with Patient providing and/or coordinating discharge services: Less than 30 minutes Status at Discharge Functional status at discharge: independent ambulation Overall status at discharge: patient is progressing back to baseline Mental Status: mental status grossly normal Speech and Movement: speech and movement normal Mood: congruent mood Affect: normal affect Quality:SDOH Health Related Social Needs: Health related social needs housing instability, house d, with risk of homelessness (Z59.811) Exam Const General: cooperative, healthy appearing, comfortable, no acute distress, well developed and well groomed Nutritional Appearance: average body habitus and well nourished Orientation: alert, awake and oriented x3 HENMT Head: normal to inspection, normocephalic and atraumatic Ears: hearing grossly normal bilaterally and external ears normal General nose exam: external nose normal and nares normal Face and sinus: normal facial exam and face symmetric Mouth: oral mucosae normal, lip normal and moist mucous membranes Eyes Alignment and Position: alignment normal and position normal Periorbital: periorbital findings normal Conjunctivae: conjunctivae normal Sclera: sclerae normal EOM: EOM intact bilaterally Resp Effort & Inspection: normal respiratory effort, able to speak in complete sentences and no respiratory distress Neuro General: patient alert, patient awake and patient oriented x3 Cranial Nerves: CN's II-XI intact bilaterally Cognition: normal cognition Speech: speech normal Gait: normal gait Psych Appearance: grossly normal and well kempt Mental Status: mental status grossly normal Speech and Movement: speech and movement normal Mood: congruent mood Affect: normal affect DS: Data Vitals/I&O Vitals and I&O: Vital Signs Temperature 37.3 C 03/20/24 11:12 Temperature Source Tympanic 03/20/24 11:12 Pulse 73 03/20/24 11:12 Pulse Rhythm Regular 03/20/24 00:26 Pulse 79 03/19/24 23:50 Respiratory Rate 16 03/20/24 11:12 Respiratory Effort Normal 03/20/24 00:26 Respiratory Depth Normal 03/20/24 00:26 Respiratory Pattern Normal 03/20/24 00:26 Blood Pressure 124/57 L 03/20/24 11:12 Blood Pressure Mean 78 03/19/24 23:31 Blood Pressure Position Sitting 03/19/24 19:30 Pulse Oximetry 92 03/20/24 11:12 Oxygen Delivery Method Room Air 03/20/24 11:12 Oxygen Flow Rate 0 03/20/24 11:12 Pain Level 0 03/20/24 00:26 Intake & Output 03/19/24 03/20/24 03/20/24 23:59 11:59 23:59 Intake Total 60 / 60 450 / 450 Balance 60 / 60 450 / 450 Weight 81.193 kg 79.379 kg Intake: IV 60 / 60 10 / 10 Oral 440 / 440 Other: Urine Color Yellow Urine Appearance Clear Urine Odor Normal Comment per pt voided x1 Data Completed and Pending Labs on day of discharge: Labs from last 24 hours 03/20/24 03/19/24 03/19/24 06:54 22:14 21:35 WBC RBC Hgb Hct MCV MCH MCHC RDW Plt Count MPV Immature Gran % Neutrophils % Lymphocytes % Monocytes % Eosinophils % Basophils % Nucleated RBC % Absolute Neutrophils Absolute Lymphocytes Absolute Monocytes Absolute Eosinophils Absolute Basophils PT INR APTT Sodium 145 Potassium 3.7 Chloride 109 H Carbon Dioxide 30.1 Anion Gap 5.9 BUN 14 Creatinine 1.2 Est GFR (CKD-EPI 2020) 65.06 Glucose 93 Calcium 9.2 Magnesium Total Bilirubin AST ALT Alkaline Phosphatase Creatine Kinase Troponin I Cancelled Total Protein Albumin TSH Urine Color Yellow Urine Clarity Clear Urine pH 6.0 Ur Specific [place] 1.010 Urine Protein Negative Urine Ketones Negative Urine Blood Negative Urine Nitrite Negative Urine Bilirubin Negative Urine Urobilinogen 0.2 Ur Leukocyte Esterase Negative Urine Glucose Negative Ethyl Alcohol COVID-19 Source SARS-CoV-2 (PCR) Influenza Type A (PCR) Influenza Type B (PCR) RSV (PCR) 03/19/24 03/19/24 03/19/24 20:45 19:49 19:35 WBC RBC Hgb Hct MCV MCH MCHC RDW Plt Count MPV Immature Gran % Neutrophils % Lymphocytes % Monocytes % Eosinophils % Basophils % Nucleated RBC % Absolute Neutrophils Absolute Lymphocytes Absolute Monocytes Absolute Eosinophils Absolute Basophils PT INR APTT Sodium Potassium Chloride Carbon Dioxide Anion Gap BUN Creatinine Est GFR (CKD-EPI 2020) Glucose Calcium Magnesium Total Bilirubin AST ALT Alkaline Phosphatase Creatine Kinase Troponin I 12 Total Protein Albumin 3.8 TSH 1.91 Urine Color Urine Clarity Urine pH Ur Specific [place] Urine Protein Urine Ketones Urine Blood Urine Nitrite Urine Bilirubin Urine Urobilinogen Ur Leukocyte Esterase Urine Glucose Ethyl Alcohol < 3.0 COVID-19 Source NASOPHARYNX SARS-CoV-2 (PCR) Negative Influenza Type A (PCR) Negative Influenza Type B (PCR) Negative RSV (PCR) Negative 03/19/24 03/19/24 03/19/24 19:35 19:35 19:35 WBC RBC Hgb Hct MCV MCH MCHC RDW Plt Count MPV Immature Gran % Neutrophils % Lymphocytes % Monocytes % Eosinophils % Basophils % Nucleated RBC % Absolute Neutrophils Absolute Lymphocytes Absolute Monocytes Absolute Eosinophils Absolute Basophils PT INR APTT Sodium Potassium Chloride Carbon Dioxide Anion Gap BUN Creatinine Est GFR (CKD-EPI 2020) Glucose Calcium Magnesium Total Bilirubin AST ALT 52 Alkaline Phosphatase 65 Cancelled Creatine Kinase 379 H Troponin I 9 Total Protein 7.3 Cancelled Albumin Cancelled TSH Urine Color Urine Clarity Urine pH Ur Specific [place] Urine Protein Urine Ketones Urine Blood Urine Nitrite Urine Bilirubin Urine Urobilinogen Ur Leukocyte Esterase Urine Glucose Ethyl Alcohol COVID-19 Source SARS-CoV-2 (PCR) Influenza Type A (PCR) Influenza Type B (PCR) RSV (PCR) 03/19/24 03/19/24 03/19/24 19:35 19:35 19:35 WBC RBC Hgb Hct MCV MCH MCHC RDW Plt Count MPV Immature Gran % Neutrophils % Lymphocytes % Monocytes % Eosinophils % Basophils % Nucleated RBC % Absolute Neutrophils Absolute Lymphocytes Absolute Monocytes Absolute Eosinophils Absolute Basophils PT INR APTT Sodium Potassium Chloride Carbon Dioxide Anion Gap BUN Creatinine Est GFR (CKD-EPI 2020) Glucose Calcium 9.5 Magnesium 2.0 Total Bilirubin 0.58 Cancelled AST 34 Cancelled ALT Cancelled Alkaline Phosphatase Creatine Kinase Troponin I Total Protein Albumin TSH Urine Color Urine Clarity Urine pH Ur Specific [place] Urine Protein Urine Ketones Urine Blood Urine Nitrite Urine Bilirubin Urine Urobilinogen Ur Leukocyte Esterase Urine Glucose Ethyl Alcohol COVID-19 Source SARS-CoV-2 (PCR) Influenza Type A (PCR) Influenza Type B (PCR) RSV (PCR) 03/19/24 03/19/24 03/19/24 19:35 19:35 19:35 WBC RBC Hgb Hct MCV MCH MCHC RDW Plt Count MPV Immature Gran % Neutrophils % Lymphocytes % Monocytes % Eosinophils % Basophils % Nucleated RBC % Absolute Neutrophils Absolute Lymphocytes Absolute Monocytes Absolute Eosinophils Absolute Basophils PT INR APTT Sodium Potassium Chloride Carbon Dioxide Anion Gap BUN Creatinine 1.5 H Est GFR (CKD-EPI 2020) 49.77 Cancelled Glucose 113 H Cancelled Calcium Cancelled Magnesium Total Bilirubin AST ALT Alkaline Phosphatase Creatine Kinase Troponin I Total Protein Albumin TSH Urine Color Urine Clarity Urine pH Ur Specific [place] Urine Protein Urine Ketones Urine Blood Urine Nitrite Urine Bilirubin Urine Urobilinogen Ur Leukocyte Esterase Urine Glucose Ethyl Alcohol COVID-19 Source SARS-CoV-2 (PCR) Influenza Type A (PCR) Influenza Type B (PCR) RSV (PCR) 03/19/24 03/19/24 03/19/24 19:35 19:35 19:35 WBC RBC Hgb Hct MCV MCH MCHC RDW Plt Count MPV Immature Gran % Neutrophils % Lymphocytes % Monocytes % Eosinophils % Basophils % Nucleated RBC % Absolute Neutrophils Absolute Lymphocytes Absolute Monocytes Absolute Eosinophils Absolute Basophils PT INR APTT Sodium Potassium Chloride Carbon Dioxide 31.2 Anion Gap 6.8 Cancelled BUN 16 Cancelled Creatinine Cancelled Est GFR (CKD-EPI 2020) Glucose Calcium Magnesium Total Bilirubin AST ALT Alkaline Phosphatase Creatine Kinase Troponin I Total Protein Albumin TSH Urine Color Urine Clarity Urine pH Ur Specific [place] Urine Protein Urine Ketones Urine Blood Urine Nitrite Urine Bilirubin Urine Urobilinogen Ur Leukocyte Esterase Urine Glucose Ethyl Alcohol COVID-19 Source SARS-CoV-2 (PCR) Influenza Type A (PCR) Influenza Type B (PCR) RSV (PCR) 03/19/24 03/19/24 03/19/24 19:35 19:35 19:35 WBC RBC Hgb Hct MCV MCH MCHC RDW Plt Count MPV Immature Gran % Neutrophils % Lymphocytes % Monocytes % Eosinophils % Basophils % Nucleated RBC % Absolute Neutrophils Absolute Lymphocytes Absolute Monocytes Absolute Eosinophils Absolute Basophils PT INR APTT Sodium 144 Potassium 4.3 Cancelled Chloride 106 Cancelled Carbon Dioxide Cancelled Anion Gap BUN Creatinine Est GFR (CKD-EPI 2020) Glucose Calcium Magnesium Total Bilirubin AST ALT Alkaline Phosphatase Creatine Kinase Troponin I Total Protein Albumin TSH Urine Color Urine Clarity Urine pH Ur Specific [place] Urine Protein Urine Ketones Urine Blood Urine Nitrite Urine Bilirubin Urine Urobilinogen Ur Leukocyte Esterase Urine Glucose Ethyl Alcohol COVID-19 Source SARS-CoV-2 (PCR) Influenza Type A (PCR) Influenza Type B (PCR) RSV (PCR) 03/19/24 19:35 WBC 8.05 RBC 5.14 Hgb 16.5 Hct 49.5 MCV 96 H MCH 32.1 MCHC 33.3 RDW 12.6 Plt Count 152 MPV 10.4 Immature Gran % 0.2 Neutrophils % 87.3 Lymphocytes % 4.6 Monocytes % 7.1 Eosinophils % 0.6 Basophils % 0.2 Nucleated RBC % 0.0 Absolute Neutrophils 7.02 H Absolute Lymphocytes 0.37 L Absolute Monocytes 0.57 Absolute Eosinophils 0.05 Absolute Basophils 0.02 PT 10.5 INR 1.0 APTT 24.0 Sodium Cancelled Potassium Chloride Carbon Dioxide Anion Gap BUN Creatinine Est GFR (CKD-EPI 2020) Glucose Calcium Magnesium Total Bilirubin AST ALT Alkaline Phosphatase Creatine Kinase Troponin I Total Protein Albumin TSH Urine Color Urine Clarity Urine pH Ur Specific [place] Urine Protein Urine Ketones Urine Blood Urine Nitrite Urine Bilirubin Urine Urobilinogen Ur Leukocyte Esterase Urine Glucose Ethyl Alcohol COVID-19 Source SARS-CoV-2 (PCR) Influenza Type A (PCR) Influenza Type B (PCR) RSV (PCR) 03/19/24 20:45 Blood Blood Culture - Pending 03/19/24 20:40 Blood Blood Culture - Pending Preliminary micro results at discharge 03/19/24 20:45 Blood Culture - Pending Blood 03/19/24 20:40 Blood Culture - Pending Blood [facility] All Active Problems (Updated 03/20/24 @ 13:24 by Gabrielle Hall NP) Alcohol use disorder (Acute) Acute hypoxemic respiratory failure (Acute) Renal insufficiency, mild (Acute) DVT prophylaxis (Acute) Community acquired pneumonia (Acute) Acute encephalopathy (Acute) Chalazion left lower eyelid (Acute) Balanitis (Acute) Weakness of right hip (Acute) Encounter for screening colonoscopy (Acute) Dry eye syndrome (Acute 04/10/22) Bilateral. 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 tubular adenoma. repeat 5yrs History of left hip replacement (06/06/21) History of shoulder surgery (06/06/21) L rotator cuff punch biopsy (01/19/15) L shoulder Excision, Lesion (03/09/13) R arm excision non-healing ulcer-Squamous cell carcinoma Dr Man Colonoscopy - IV Sedation (03/09/04) 2014- tubular adenoma Family History Mother Emphysema lung Father Personal history of malignant neoplasm lung Sister Personal history of malignant neoplasm brain cancer Other Tubular adenoma of colon Social History Smoking/Tobacco Use Status: Never Smoking risk assessment performed?: Yes Alcohol Intake: current Alcohol Intake frequency: a few times a week Alcohol type: beer and wine Drug use: Never Substance use type: does not use Adopted: No Caregiver/Support person: No Household members: spouse Housing: house Number of Children: 5 number of grandchildren: 5 Communication Needs: None Education Level: college 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 Pets and animals: Yes (1) Pets and animals: dog(s) Sexually active: Yes Do you think of yourself as: straight/heterosexual Current gender identity: male What is your relationship status?: How often do you talk on the phone with friends or family?: three or more times per week How often do you get together with friends or relatives?: once per week How often do you attend yarsanism or uatsdin services?: decline to answer Do you belong to any clubs or organized social groups?: no Panel score (0-1 are the most socially isolated patients): 2 What type of physical activity do you participate in: other Details: light weights/ treadmill when hip is good Duration: < 15 minutes/day Frequency: 1-2 times per week Mirela/Anabaptism: Roman Catholic Special mirela needs: No Seatbelt use: always Helmet use: Yes Helmet use: always Drive intox or ride w/intox ice delivery driver: No Working smoke detector in home: Yes Fire extinguisher in home: Yes Carbon monox detector in home: Yes Do you feel safe at home: Yes Do you feel safe in your relationship?: Yes Time Spent with Patient Time Spent with Patient: 45-69 minutes Time was spent: preparing to see the patient(eg.review tests), obtaining and/or reviewing separately otained hiistory, ordering medications,tests, procedures, indepentently interpreting results and counseling the patient
[2024-03-20] MEDS: cefTRIAXone 2 GM/50 ML BAG IVPB (14:53)
== END 2024-03-20 16:14 | disposition home or self-care (01) | DRG 193 ==
LOC: ER 23:11 → MS 03-20 00:09
PROVIDERS: Admitting Provider Family Medicine; Emergency Provider Emergency Medicine; PCP Family Medicine; Visit Provider Family Medicine
DX: J18.9 Pneumonia, unspecified organism (principal); G92.8 Other toxic encephalopathy; J96.01 Acute respiratory failure with hypoxia; C61 Malignant neoplasm of prostate; F10.90 Alcohol use, unspecified, uncomplicated; W19.XXXA Unspecified fall, initial encounter; Z79.899 Other long term (current) drug therapy; R53.1 Weakness; I10 Essential (primary) hypertension; E78.5 Hyperlipidemia, unspecified; Z92.3 Personal history of irradiation; Z96.642 Presence of left artificial hip joint; N28.89 Other specified disorders of kidney and ureter
CPT/HCPCS: 00123; 36415; 70496; 70498; 71250; 80048; 80053; 82550; 87040; 87637; 93005; 96365; 99285; 71045; 80320; 81003; 83735; 84443; 84484; 85025; 85610; 85730; 93010; 99223; 99239; J0696; J3490

== ENCOUNTER 2024-03-25 14:37 | Outpatient (CLI) | payer MEDICARE, BC, SELFPAY ==
--- NOTE | 2024-03-25 14:00 | DI.RAD_ITS ---
Exam(s) XR HIP LT COMPLETE AP PELVIS EXAM: XR HIP LT COMPLETE AP PELVIS CLINICAL HISTORY: eval L hip pain after fall. TECHNIQUE: 2D digital imaging was performed. Two images were obtained. AP pelvis and lateral views were obtained. COMPARISON: CR XR HIP PELVIS ADULT BL from 08/18/2023 FINDINGS: BONES: There are stable post operative changes of a left total hip arthroplasty present. No fracture or dislocation. JOINTS: The orthopedic hardware is in good position. No evidence of hardware loosening. SOFT TISSUE: There are surgical clips in the pelvis. IMPRESSION: Stable left total hip arthroplasty. DATA REPOSITORY: RADIATION DOSE DELIVERED:
== END 2024-03-25 14:38 | disposition home or self-care (01) ==
LOC: DIORS 14:37
PROVIDERS: PCP Family Medicine; Referring Provider Family Medicine; Visit Provider Student in an Organized Health Care Education/Training Program
DX: M25.552 Pain in left hip (principal); S70.02XA Contusion of left hip, initial encounter; W19.XXXA Unspecified fall, initial encounter; M76.892 Other specified enthesopathies of left lower limb, excluding foot
CPT/HCPCS: 99213; 73502

== ENCOUNTER 2024-05-19 08:12 | Outpatient (CLI) | payer MEDICARE, BC, SELFPAY ==
[2024-05-20 21:08] LABS: PSA, Ultrasensitive 0.02 ng/mL (<= 6.5)
== END 2024-05-19 08:13 | disposition home or self-care (01) ==
LOC: LBO 08:12
PROVIDERS: PCP Family Medicine; Visit Provider Physician Assistant
DX: C61 Malignant neoplasm of prostate (principal)
CPT/HCPCS: 36415; 84153

== ENCOUNTER 2024-11-24 08:22 | Outpatient (CLI) | payer MEDICARE, BC, SELFPAY | END 2024-11-24 08:23 | disposition home or self-care (01) | LOC: LBO 08:22 | PROVIDERS: PCP Family Medicine; Visit Provider Physician Assistant | DX: C61 Malignant neoplasm of prostate (principal) | CPT/HCPCS: 36415; 84153 ==

== ENCOUNTER 2024-12-24 03:02 | Outpatient (CLI) | payer MEDICARE, BC, SELFPAY ==
[2024-12-24 08:36] LABS: Cholesterol 134 mg/dL (<200); HDL Cholesterol 46 mg/dL (>or=40)
== END 2024-12-24 03:03 | disposition home or self-care (01) ==
PROVIDERS: PCP Family Medicine; Visit Provider Family Medicine
DX: E78.5 Hyperlipidemia, unspecified (principal)
CPT/HCPCS: 36415; 80061